=== PATIENT | male | born 1955 | race Caucasian/White ===

== ENCOUNTER 2017-04-16 06:34 | Inpatient (IN) | payer OTHER ==
[2017-04-16 06:42] VITALS: BMI 28.0
[2017-04-16] MEDS ORDERED: KETOROLAC TROMETHAMINE 30 MG/1 ML VIAL ONE (06:55)
[2017-04-16 07:01] LABS: BASOPHIL 0.4 % (0-2.0); EOSINOPHIL 0.5 % (0-4.5); MCH 28.8 pg (25.7-33.7); MCHC 33.4 g/dl (32.0-35.9); MEAN CELL VOLUME 86.4 fl (80-96); MEAN PLT VOLUME 8.9 fl (7.5-11.1); NEUTROPHILS 74.6 % (42.8-82.8); PLATELET COUNT 151 K/MM3 (134-434); RDW 13.3 % (11.9-15.9); WHITE BLOOD COUNT 8.7 K/mm3 (4.0-10.0)
[2017-04-16] MEDS ORDERED: KETOROLAC TROMETHAMINE 30 MG/1 ML VIAL IVPUSH ONE (07:02)
[2017-04-16] MEDS ORDERED: SODIUM CHLORIDE 0.9% 1000 ML INFUS.BAG IV ONE (07:03)
[2017-04-16 07:06] LABS: URINE APPEARANCE CLEAR; URINE BILIRUBIN NEGATIVE (NEGATIVE); URINE COLOR LTYELLOW; URINE GLUCOSE (UA) NEGATIVE (NEGATIVE); URINE KETONE NEGATIVE (NEGATIVE); URINE LEUK ESTERASE NEGATIVE (NEGATIVE); URINE NITRITE NEGATIVE (NEGATIVE); URINE UROBILINOGEN NEGATIVE E.U./dl (0.2-1.0)
[2017-04-16 07:09] LABS: URINE BLOOD 3+ (NEGATIVE); URINE PROTEIN 1+ (NEGATIVE)
[2017-04-16 07:10] LABS: URINE HYALINE CAST 1 /lpf; URINE MUCUS RARE; URINE RBC 114 /hpf (0-3); URINE WBC 6 /hpf (3-5)
[2017-04-16] MEDS ORDERED: morphine CARPU-JECT 4 MG/1 ML DISP.SYRIN IVPUSH ONE (07:23)
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
[2017-04-16] MEDS ORDERED: morphine CARPU-JECT 4 MG/1 ML DISP.SYRIN ONE (07:27)
[2017-04-16 07:33] LABS: ALBUMIN 3.7 g/dl (3.4-5.0); ANION GAP 9 (8-16); BILIRUBIN,TOTAL 0.7 mg/dL (0.2-1.0); CALCIUM 8.4 mg/dL (8.5-10.1); CO2 27 mmol/L (21-32); CREATININE 1.8 mg/dL (0.7-1.3); GLUCOSE,RANDOM 143 mg/dL (74-106); SGOT/AST 18 U/L (15-37); SGPT/ALT 34 U/L (12-78)
[2017-04-16 07:34] LABS: ALK PHOS 97 U/L (45-117)
[2017-04-16] MEDS ORDERED: TAMSULOSIN HCL 0.4 MG CAP.ER.24H (FP) PO ONE (09:34)
[2017-04-16] MEDS ORDERED: TAMSULOSIN HCL 0.4 MG CAP.ER.24H (FP) ONE (09:38)
[2017-04-16] MEDS ORDERED: SODIUM CHLORIDE 1,000 ML IV STA (09:42)
[2017-04-16 10:16] LABS: ALBUMIN 3.4 g/dl (3.4-5.0); ALK PHOS 95 U/L (45-117); ANION GAP 7 (8-16); BILIRUBIN,TOTAL 0.6 mg/dL (0.2-1.0); CALCIUM 8.4 mg/dL (8.5-10.1); CO2 27 mmol/L (21-32); CREATININE 1.7 mg/dL (0.7-1.3); GLUCOSE,RANDOM 122 mg/dL (74-106); SGOT/AST 16 U/L (15-37); SGPT/ALT 31 U/L (12-78); TOT PROT 7.5 g/dl (6.4-8.2)
[2017-04-16] MEDS ORDERED: morphine CARPU-JECT 2 MG/1 ML DISP.SYRIN IVPUSH PRN (18:08)
[2017-04-16] MEDS: DEXTROSE 5%-0.45% SALINE 1,000 ML IV SCH (18:55)
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
[2017-04-17] MEDS ORDERED: morphine CARPU-JECT 2 MG/1 ML DISP.SYRIN IVPB ONE (01:30)
[2017-04-17] MEDS ORDERED: morphine CARPU-JECT 4 MG/1 ML DISP.SYRIN IVPUSH PRN ×2 (02:26→02:29)
[2017-04-17] MEDS ORDERED: KETOROLAC TROMETHAMINE 30 MG/1 ML VIAL IVPB ONE (02:30)
[2017-04-17] MEDS: TAMSULOSIN HCL 0.4 MG CAP.ER.24H (FP) PO SCH (08:51)
[2017-04-17 09:30] LABS: BASOPHIL 0.5 % (0-2.0); EOSINOPHIL 0.9 % (0-4.5); MCH 29.6 pg (25.7-33.7); MCHC 34.1 g/dl (32.0-35.9); MEAN CELL VOLUME 86.9 fl (80-96); MEAN PLT VOLUME 9.1 fl (7.5-11.1); NEUTROPHILS 67.2 % (42.8-82.8); PLATELET COUNT 127 K/MM3 (134-434); RDW 13.4 % (11.9-15.9)
[2017-04-17 09:41] LABS: ALBUMIN 3.4 g/dl (3.4-5.0); ANION GAP 11 (8-16); CALCIUM 8.4 mg/dL (8.5-10.1); CO2 24 mmol/L (21-32); CREATININE 1.7 mg/dL (0.7-1.3); GLUCOSE,RANDOM 161 mg/dL (74-106); SGOT/AST 17 U/L (15-37); SGPT/ALT 28 U/L (12-78); TOT PROT 7.1 g/dl (6.4-8.2)
[2017-04-17 09:45] LABS: ALK PHOS 87 U/L (45-117); BILIRUBIN,TOTAL 0.7 mg/dL (0.2-1.0)
[2017-04-17] MEDS: amLODIPine BESYLATE 10 MG TABLET (FP) PO SCH (10:37)
[2017-04-17] MEDS: DEXTROSE 5%-0.45% SALINE 1,000 ML IV SCH (11:51)
[2017-04-18] MEDS: DEXTROSE 5%-0.45% SALINE 1,000 ML IV SCH ×2 (05:20→18:13)
[2017-04-18 08:07] LABS: BASOPHIL 0.6 % (0-2.0); EOSINOPHIL 3.6 % (0-4.5); MCHC 33.5 g/dl (32.0-35.9); MEAN CELL VOLUME 86.5 fl (80-96); MEAN PLT VOLUME 8.7 fl (7.5-11.1); NEUTROPHILS 53.3 % (42.8-82.8); PLATELET COUNT 130 K/MM3 (134-434); RDW 13.2 % (11.9-15.9); WHITE BLOOD COUNT 5.4 K/mm3 (4.0-10.0)
[2017-04-18 08:51] LABS: ALBUMIN 3.2 g/dl (3.4-5.0); ANION GAP 9 (8-16); BILIRUBIN,TOTAL 0.6 mg/dL (0.2-1.0); CALCIUM 8.4 mg/dL (8.5-10.1); CO2 28 mmol/L (21-32); CREATININE 1.5 mg/dL (0.7-1.3); GLUCOSE,RANDOM 102 mg/dL (74-106); SGOT/AST 21 U/L (15-37); SGPT/ALT 29 U/L (12-78); TOT PROT 7.2 g/dl (6.4-8.2)
[2017-04-18 08:52] LABS: ALK PHOS 86 U/L (45-117)
[2017-04-18] MEDS: TAMSULOSIN HCL 0.4 MG CAP.ER.24H (FP) PO SCH (09:08)
[2017-04-18] MEDS: amLODIPine BESYLATE 10 MG TABLET (FP) PO SCH (09:09)
[2017-04-18] MEDS: HEPARIN NA (PORCINE) 5,000 UNITS/ML 1ML VIAL SQ SCH ×2 (09:09→21:51)
--- NOTE | 2017-04-18 18:10 | CONS ---
DATE OF CONSULTATION: 04/17/2017 HISTORY: The patient is a 61-year-old male admitted via the emergency room on April 16, 2017. He is complaining of acute onset of left flank pain. He states that it began earlier that day and has increased in severity. The pain was colicky in nature, commenced in the left flank and radiating to the left lower quadrant and groin. The patient does have frequency and some nausea but denies any vomiting, fever, chills, dysuria, or hematuria. He recently underwent a cervical laminectomy and is presently wearing a soft neck collar. PAST MEDICAL HISTORY: The patient denies any other significant medical history. SOCIAL HISTORY: He denies any ethanolism or tobacco use. ALLERGIES: He denies any allergies. PHYSICAL EXAMINATION: Vital Signs: Temperature in the emergency room 97.8, pulse 77, blood pressure 157/98, pulse oximetry is 99. Abdomen: The patient basically has severe left flank pain. Also tenderness, which radiates to the left groin. A CBC revealed a white count of 8.7, hemoglobin 13.7, hematocrit 41, random glucose 151, BUN 19, creatinine 1.7. The patient's urine was positive for blood and negative for nitrates. The patient was commenced on IV fluids and given analgesics to relieve his pain. A spiral CT of the kidneys was done in the emergency room, and this revealed a left-sided hydroureteronephrosis secondary to a 5-mm left ureteral calculus. There were also several bilateral nonobstructing 2- to 3-mm stones in both the right and left kidney. There was a 1-cm left adrenal nodule. There was left-sided colonic diverticulosis without evidence of diverticulitis. There was a small umbilical hernia containing fat only. DIAGNOSIS: Left renal colic with left renal stone. PLAN: We will admit patient. Increase p.o. and IV fluids. Start the patient on Flomax 0.4 mg. Strain his urine. We will repeat sonogram in the a.m. If stone is still present, we will recommend a ureteroscopic laser lithotripsy. We will follow with you. ISMAEL CASILLAS M.D. [id number]
--- NOTE | 2017-04-18 20:52 | PN ---
Progress Note, Physician History of Present Illness: Pt feeling better - Current Medication List Current Medications: Active Medications Amlodipine Besylate (Norvasc -) 10 mg PO DAILY [facility] Last Admin: 04/18/17 09:09 Dose: 10 mg Heparin Sodium (Porcine) (Heparin -) 5,000 unit SQ BID [facility] Last Admin: 04/18/17 09:09 Dose: 5,000 unit Dextrose/Sodium Chloride (D5-1/2ns -) 1,000 mls @ 75 mls/hr IV ASDIR [facility] Last Admin: 04/18/17 18:13 Dose: 75 mls/hr Morphine Sulfate (Morphine Injection -) 4 mg IVPUSH Q4H PRN PRN Reason: PAIN Tamsulosin HCl (Flomax -) 0.4 mg PO DAILY@0830 [facility] Last Admin: 04/18/17 09:08 Dose: 0.4 mg - Objective Vital Signs: Vital Signs Temperature 98.3 F 04/18/17 14:13 Pulse Rate 110 H 04/18/17 14:13 Respiratory Rate 18 04/18/17 14:13 Blood Pressure 146/95 04/18/17 14:13 O2 Sat by Pulse Oximetry (%) 97 04/18/17 09:00 Constitutional: Yes: No Distress Neck: Yes: Other (Pt wearing neck brace) Cardiovascular: Yes: WNL, Regular Rate and Rhythm Respiratory: Yes: WNL, Regular, CTA Bilaterally Gastrointestinal: Yes: WNL, Normal Bowel Sounds, Soft Labs: CBC, BMP 04/18/17 06:00 04/18/17 06:00 Problem List - Problems (1) Kidney stone Assessment/Plan: CT scan abd showed 4-5 mm lt ureteral calculus w/ mild hydronephrosis Pain management Cont IVF Cont flomax Strain urine As per uro Check renal US in am Code(s): N20.0 - CALCULUS OF KIDNEY (2) HTN (hypertension) Assessment/Plan: BP stable Cont norvasc Code(s): I10 - ESSENTIAL (PRIMARY) HYPERTENSION
[2017-04-19] MEDS: DEXTROSE 5%-0.45% SALINE 1,000 ML IV SCH ×3 (10:14→17:15)
[2017-04-19] MEDS: HEPARIN NA (PORCINE) 5,000 UNITS/ML 1ML VIAL SQ SCH ×2 (10:14→21:43)
[2017-04-19] MEDS ORDERED: PT OWN MED DRAWER 7, Y5N ONE (10:15)
[2017-04-19] MEDS: amLODIPine BESYLATE 10 MG TABLET (FP) PO SCH (10:18)
[2017-04-19] MEDS: TAMSULOSIN HCL 0.4 MG CAP.ER.24H (FP) PO SCH (10:18)
--- NOTE | 2017-04-19 11:35 | EKG ---
Test Reason : Blood Pressure : / mmHG Vent. Rate : 098 BPM Atrial Rate : 098 BPM P-R Int : 166 ms QRS Dur : 090 ms QT Int : 338 ms P-R-T Axes : 042 -31 041 degrees QTc Int : 431 ms NORMAL SINUS RHYTHM LEFT AXIS DEVIATION MODERATE VOLTAGE CRITERIA FOR LVH, MAY BE NORMAL VARIANT ABNORMAL ECG NO PREVIOUS ECGS AVAILABLE Confirmed by SOTO HESS MD ([id number]) on 04/19/2017 11:35:29 AM Referred By: Aleks KARIMI Confirmed By:SOTO HESS MD
[2017-04-19] MEDS ORDERED: PROPOFOL 20 ML ONE (14:24)
[2017-04-19] MEDS ORDERED: MIDAZOLAM HCL 2 MG/2 ML SINGLE DOSE VIAL ONE (14:24)
--- NOTE | 2017-04-19 14:26 | PN ---
Progress Note (short form) - Note Progress Note: pt. with lt. sided hydronephrosis still with lt. flank pain and colick will schedual for LULL with JJ stent
[2017-04-19] MEDS ORDERED: DESFLURANE GAS 240 ML BOTTLE IH ONE (14:29)
[2017-04-19] MEDS ORDERED: ceFAZolin SODIUM 1 GM VIAL IVPB ONE (14:50)
[2017-04-19] MEDS ORDERED: ceFAZolin SODIUM 1 GM VIAL ONE (14:55)
[2017-04-19] MEDS ORDERED: KETOROLAC TROMETHAMINE 30 MG/1 ML VIAL ONE (15:38)
[2017-04-19] MEDS ORDERED: DEXAMETHASONE SOD PHOSPHATE 4 MG/1 ML VIAL ONE (15:50)
--- NOTE | 2017-04-19 16:09 | OP ---
Operative Note - Note: Operative Date: 04/19/17 Pre-Operative Diagnosis: lt. ureteral stone and hydro. Operation: LULL with JJ stent Findings: lt. ereteral stone Implants: 24cm 6f lt. JJ STENT. Post-Operative Diagnosis: Same as Pre-op Surgeon: Chintan Yadav Anesthesia: General Specimens Removed: URINE Estimated Blood Loss (mls): 0 Drains & Tubes with Location: 18F 10CC OLIVEIRA
[2017-04-19] MEDS ORDERED: ONDANSETRON 4 MG/2 ML VIAL IVPUSH PRN ×2 (16:10→17:04)
[2017-04-19] MEDS ORDERED: LACTATED RINGERS SOLUTION 1,000 ML IV SCH (16:15)
[2017-04-19] MEDS ORDERED: PROMETHAZINE HCL 25 MG/1 ML VIAL IVPUSH PRN (17:04)
--- NOTE | 2017-04-19 23:06 | PN ---
Progress Note, Physician History of Present Illness: Pt tolerated procedure Pt had urinary retention and abbasi placed 350cc residual urine - Current Medication List Current Medications: Active Medications Amlodipine Besylate (Norvasc -) 10 mg PO DAILY [facility] Last Admin: 04/19/17 10:18 Dose: 10 mg Fentanyl (Sublimaze Injection -) 50 mcg IVPUSH [id number] PRN PRN Reason: PAIN Stop: 04/22/17 16:11 Last Admin: 04/19/17 16:44 Dose: 50 mcg Fentanyl (Sublimaze Injection -) 50 mcg IVPUSH [id number] PRN PRN Reason: PAIN Stop: 04/22/17 17:05 Heparin Sodium (Porcine) (Heparin -) 5,000 unit SQ BID [facility] Last Admin: 04/19/17 21:43 Dose: 5,000 unit Dextrose/Sodium Chloride (D5-1/2ns -) 1,000 mls @ 75 mls/hr IV ASDIR [facility] Last Admin: 04/19/17 17:15 Dose: 0 mls Lactated Ringer's (Lactated Ringers Solution) 1,000 mls @ 125 mls/hr IV ASDIR [facility] Ketorolac Tromethamine (Toradol Injection -) 30 mg IVPUSH Q6H PRN Stop: 04/24/17 12:50 Lisinopril (Prinivil) 20 mg PO DAILY [facility] Morphine Sulfate (Morphine Injection -) 4 mg IVPUSH Q4H PRN PRN Reason: PAIN Last Admin: 04/19/17 11:07 Dose: 4 mg Ondansetron HCl (Zofran Injection) 4 mg IVPUSH Q6H PRN PRN Reason: NAUSEA AND/OR VOMITING Stop: 04/19/17 23:05 Oxycodone HCl (Roxicodone -) 10 mg PO Q4H PRN PRN Reason: SEVERE PAIN Stop: 04/20/17 17:03 Promethazine HCl (Phenergan Injection -) 12.5 mg IVPUSH Q6H PRN PRN Reason: NAUSEA Stop: 04/19/17 23:05 Tamsulosin HCl (Flomax -) 0.4 mg PO DAILY@0830 [facility] Last Admin: 04/19/17 10:18 Dose: 0.4 mg - Objective Vital Signs: Vital Signs Temperature 99.3 F 04/19/17 22:14 Pulse Rate 98 H 04/19/17 22:14 Respiratory Rate 20 04/19/17 22:14 Blood Pressure 140/84 04/19/17 22:14 O2 Sat by Pulse Oximetry (%) 94 L 04/19/17 18:10 Constitutional: Yes: No Distress Eyes: Yes: WNL HENT: Yes: WNL Neck: Yes: Other (Pt wearing neck brace) Cardiovascular: Yes: WNL, Regular Rate and Rhythm Respiratory: Yes: WNL, Regular, CTA Bilaterally Gastrointestinal: Yes: WNL, Normal Bowel Sounds Labs: CBC, BMP 04/18/17 06:00 04/18/17 06:00 Problem List - Problems (1) Kidney stone Assessment/Plan: CT scan abd showed 4-5 mm lt ureteral calculus w/ mild hydronephrosis Pain management Cont IVF Cont flomax S/P JJ stent placement DC abbasi as per uro Code(s): N20.0 - CALCULUS OF KIDNEY (2) HTN (hypertension) Assessment/Plan: BP stable Cont norvasc Code(s): I10 - ESSENTIAL (PRIMARY) HYPERTENSION
[2017-04-20] MEDS: DEXTROSE 5%-0.45% SALINE 1,000 ML IV SCH ×2 (05:44→20:18)
[2017-04-20] MEDS: oxyCODONE HCL 5 MG TABLET PO PRN ×2 (05:50→14:30)
[2017-04-20] MEDS: TAMSULOSIN HCL 0.4 MG CAP.ER.24H (FP) PO SCH (08:48)
[2017-04-20] MEDS ORDERED: PATIENT'S OWN MEDICATION (NON-FORMULARY) (Amlodipine Besylate/Benazepril [Lotrel 10-20 Mg PO SCH (10:00)
[2017-04-20] MEDS: LISINOPRIL 20 MG TABLET (FP) PO SCH (11:10)
[2017-04-20] MEDS: amLODIPine BESYLATE 10 MG TABLET (FP) PO SCH (11:10)
[2017-04-20] MEDS: HEPARIN NA (PORCINE) 5,000 UNITS/ML 1ML VIAL SQ SCH ×2 (11:10→22:04)
--- NOTE | 2017-04-20 15:44 | PN ---
Progress Note (short form) - Note Progress Note: Anesthesia postop note 61 y/o M, s/p GA for cystoscopy POD#1, vss, aaox3, ambulating, pain well controlled, no complaints No anesthesia complications.
[2017-04-20] MEDS: ACETAMINOPHEN 325 MG TABLET (FP) PO PRN (19:28)
[2017-04-20] MEDS: LEVOFLOXACIN 500 MG IVPB 100 ML IVPB SCH (20:18)
[2017-04-20] MEDS ORDERED: IBUPROFEN 400 MG TABLET (FP) PO ONE (21:45)
--- NOTE | 2017-04-20 22:29 | PN ---
Progress Note, Physician History of Present Illness: No new complaints - Current Medication List Current Medications: Active Medications Acetaminophen (Tylenol -) 650 mg PO Q6H PRN PRN Reason: FEVER OR PAIN Last Admin: 04/20/17 19:28 Dose: 650 mg Amlodipine Besylate (Norvasc -) 10 mg PO DAILY [facility] Last Admin: 04/20/17 11:10 Dose: 10 mg Fentanyl (Sublimaze Injection -) 50 mcg IVPUSH [id number] PRN PRN Reason: PAIN Stop: 04/22/17 16:11 Last Admin: 04/19/17 16:44 Dose: 50 mcg Fentanyl (Sublimaze Injection -) 50 mcg IVPUSH [id number] PRN PRN Reason: PAIN Stop: 04/22/17 17:05 Heparin Sodium (Porcine) (Heparin -) 5,000 unit SQ BID [facility] Last Admin: 04/20/17 22:04 Dose: 5,000 unit Dextrose/Sodium Chloride (D5-1/2ns -) 1,000 mls @ 75 mls/hr IV ASDIR [facility] Last Admin: 04/20/17 20:18 Dose: 75 mls/hr Lactated Ringer's (Lactated Ringers Solution) 1,000 mls @ 125 mls/hr IV ASDIR [facility] Levofloxacin (Levaquin 500 Mg Premixed Ivpb -) 100 mls @ 100 mls/hr IVPB DAILY [facility] Stop: 04/22/17 19:29 Last Admin: 04/20/17 20:18 Dose: 100 mls/hr Ketorolac Tromethamine (Toradol Injection -) 30 mg IVPUSH Q6H PRN Stop: 04/24/17 12:50 Lisinopril (Prinivil) 20 mg PO DAILY [facility] Last Admin: 04/20/17 11:10 Dose: 20 mg Tamsulosin HCl (Flomax -) 0.4 mg PO DAILY@0830 [facility] Last Admin: 04/20/17 08:48 Dose: 0.4 mg - Objective Vital Signs: Vital Signs Temperature 101.3 F H 04/20/17 21:43 Pulse Rate 100 H 04/20/17 21:43 Respiratory Rate 20 04/20/17 21:43 Blood Pressure 134/76 04/20/17 20:09 O2 Sat by Pulse Oximetry (%) 98 04/20/17 20:48 Cardiovascular: Yes: WNL, Regular Rate and Rhythm Respiratory: Yes: WNL, Regular, CTA Bilaterally Gastrointestinal: Yes: WNL, Normal Bowel Sounds Labs: CBC, BMP 04/18/17 06:00 04/18/17 06:00 Problem List - Problems (1) Kidney stone Code(s): N20.0 - CALCULUS OF KIDNEY (2) HTN (hypertension) Code(s): I10 - ESSENTIAL (PRIMARY) HYPERTENSION
[2017-04-21 00:13] LABS: URINE APPEARANCE CLEAR; URINE BILIRUBIN NEGATIVE (NEGATIVE); URINE COLOR STRAW; URINE GLUCOSE (UA) NEGATIVE (NEGATIVE); URINE KETONE NEGATIVE (NEGATIVE); URINE LEUK ESTERASE NEGATIVE (NEGATIVE); URINE NITRITE NEGATIVE (NEGATIVE); URINE PROTEIN NEGATIVE (NEGATIVE); URINE UROBILINOGEN NEGATIVE E.U./dl (0.2-1.0)
[2017-04-21 00:26] LABS: URINE BLOOD 3+ (NEGATIVE)
[2017-04-21 00:29] LABS: URINE RBC 30 /hpf (0-3); URINE WBC 5 /hpf (3-5)
[2017-04-21] MEDS: ACETAMINOPHEN 325 MG TABLET (FP) PO PRN ×2 (01:00→17:33)
[2017-04-21 07:46] LABS: BASOPHIL 0.2 % (0-2.0); EOSINOPHIL 0.7 % (0-4.5); MCH 29.7 pg (25.7-33.7); MCHC 33.9 g/dl (32.0-35.9); MEAN CELL VOLUME 87.6 fl (80-96); MEAN PLT VOLUME 8.7 fl (7.5-11.1); NEUTROPHILS 79.6 % (42.8-82.8); PLATELET COUNT 139 K/MM3 (134-434); RDW 13.7 % (11.9-15.9); WHITE BLOOD COUNT 11.3 K/mm3 (4.0-10.0)
[2017-04-21 08:14] LABS: ANION GAP 9 (8-16); CALCIUM 8.4 mg/dL (8.5-10.1); CO2 26 mmol/L (21-32); CREATININE 2.2 mg/dL (0.7-1.3); GLUCOSE,RANDOM 104 mg/dL (74-106); SGOT/AST 19 U/L (15-37); SGPT/ALT 32 U/L (12-78)
[2017-04-21] MEDS: TAMSULOSIN HCL 0.4 MG CAP.ER.24H (FP) PO SCH (08:14)
[2017-04-21 08:16] LABS: ALK PHOS 87 U/L (45-117); BILIRUBIN,TOTAL 0.6 mg/dL (0.2-1.0); TOT PROT 7.1 g/dl (6.4-8.2)
[2017-04-21] MEDS: LISINOPRIL 20 MG TABLET (FP) PO SCH (09:57)
[2017-04-21] MEDS: LEVOFLOXACIN 500 MG IVPB 100 ML IVPB SCH (09:57)
[2017-04-21] MEDS: HEPARIN NA (PORCINE) 5,000 UNITS/ML 1ML VIAL SQ SCH ×2 (09:57→21:06)
[2017-04-21] MEDS: amLODIPine BESYLATE 10 MG TABLET (FP) PO SCH (09:57)
[2017-04-21] MEDS: KETOROLAC TROMETHAMINE 30 MG/1 ML VIAL IVPUSH PRN ×2 (11:13→17:32)
--- NOTE | 2017-04-21 15:10 | PN ---
Progress Note, Physician Chief Complaint: ID Day 2 placement of left JJ stent Febrile in pain - Current Medication List Current Medications: Active Medications Acetaminophen (Tylenol -) 650 mg PO Q6H PRN PRN Reason: FEVER OR PAIN Last Admin: 04/21/17 01:00 Dose: 650 mg Amlodipine Besylate (Norvasc -) 10 mg PO DAILY [facility] Last Admin: 04/21/17 09:57 Dose: 10 mg Fentanyl (Sublimaze Injection -) 50 mcg IVPUSH [id number] PRN PRN Reason: PAIN Stop: 04/22/17 16:11 Last Admin: 04/19/17 16:44 Dose: 50 mcg Fentanyl (Sublimaze Injection -) 50 mcg IVPUSH [id number] PRN PRN Reason: PAIN Stop: 04/22/17 17:05 Heparin Sodium (Porcine) (Heparin -) 5,000 unit SQ BID [facility] Last Admin: 04/21/17 09:57 Dose: 5,000 unit Dextrose/Sodium Chloride (D5-1/2ns -) 1,000 mls @ 75 mls/hr IV ASDIR [facility] Last Admin: 04/20/17 20:18 Dose: 75 mls/hr Lactated Ringer's (Lactated Ringers Solution) 1,000 mls @ 125 mls/hr IV ASDIR [facility] Levofloxacin (Levaquin 500 Mg Premixed Ivpb -) 100 mls @ 100 mls/hr IVPB DAILY [facility] Stop: 04/22/17 19:29 Last Admin: 04/21/17 09:57 Dose: 100 mls/hr Ketorolac Tromethamine (Toradol Injection -) 30 mg IVPUSH Q6H PRN Stop: 04/24/17 12:50 Last Admin: 04/21/17 11:13 Dose: 30 mg Lisinopril (Prinivil) 20 mg PO DAILY [facility] Last Admin: 04/21/17 09:57 Dose: 20 mg Tamsulosin HCl (Flomax -) 0.4 mg PO DAILY@0830 [facility] Last Admin: 04/21/17 08:14 Dose: 0.4 mg - Objective Vital Signs: Vital Signs Temperature 98.8 F 04/21/17 13:46 Pulse Rate 110 H 04/21/17 13:46 Respiratory Rate 18 04/21/17 09:00 Blood Pressure 135/68 04/21/17 13:46 O2 Sat by Pulse Oximetry (%) 98 04/21/17 09:00 Constitutional: Yes: Moderate Distress HENT: Yes: WNL, Atraumatic Neck: Yes: WNL, Supple Cardiovascular: Yes: Regular Rate and Rhythm, S1, S2. No: Murmur Respiratory: Yes: WNL, Regular, CTA Bilaterally Gastrointestinal: Yes: Soft, Tenderness, Other (LLQ pain) Genitourinary: Yes: CVA Tenderness - Left Labs: CBC, BMP 04/21/17 06:55 04/21/17 06:55 Problem List - Problems (1) Kidney stone Code(s): N20.0 - CALCULUS OF KIDNEY (2) Klebsiella infection Code(s): B96.1 - KLEBSIELLA PNEUMONIAE THE CAUSE OF DISEASES CLASSD [facility] Assessment/Plan Microbiology 04/19/17 21:14 Urine - Urine - Catheterized Urine Culture - Final NO GROWTH OBTAINED 04/17/17 15:00 Urine - Urine Clean Catch Urine Culture - Final Klebsiella Pneumoniae Laboratory Tests 04/16/17 04/21/17 04/21/17 06:53 06:55 06:55 WBC 11.3 H D Hgb 12.3 Hct 36.3 Plt Count 139 BUN 28 H D Creatinine 2.2 H D Creat Clearance w eGFR 30.58 Urine RBC 114 Urine WBC 6 Assessment Placement of JJ stent 04/09 Klebsiella urinary infection Kidney stones Worsening renal function Plan Continue Levofloxacin Blood cultures x 2 albeit post treatment Analgesics
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
[2017-04-21] MEDS: DEXTROSE 5%-0.45% SALINE 1,000 ML IV SCH (20:56)
--- NOTE | 2017-04-21 23:36 | PN ---
Progress Note, Physician History of Present Illness: No new complaints - Current Medication List Current Medications: Active Medications Acetaminophen (Tylenol -) 650 mg PO Q6H PRN PRN Reason: FEVER OR PAIN Last Admin: 04/21/17 17:33 Dose: 650 mg Amlodipine Besylate (Norvasc -) 10 mg PO DAILY [facility] Last Admin: 04/21/17 09:57 Dose: 10 mg Fentanyl (Sublimaze Injection -) 50 mcg IVPUSH [id number] PRN PRN Reason: PAIN Stop: 04/22/17 16:11 Last Admin: 04/19/17 16:44 Dose: 50 mcg Fentanyl (Sublimaze Injection -) 50 mcg IVPUSH [id number] PRN PRN Reason: PAIN Stop: 04/22/17 17:05 Heparin Sodium (Porcine) (Heparin -) 5,000 unit SQ BID [facility] Last Admin: 04/21/17 21:06 Dose: 5,000 unit Dextrose/Sodium Chloride (D5-1/2ns -) 1,000 mls @ 75 mls/hr IV ASDIR [facility] Last Admin: 04/21/17 20:56 Dose: Not Given Lactated Ringer's (Lactated Ringers Solution) 1,000 mls @ 125 mls/hr IV ASDIR [facility] Levofloxacin (Levaquin 500 Mg Premixed Ivpb -) 100 mls @ 100 mls/hr IVPB DAILY [facility] Stop: 04/22/17 19:29 Last Admin: 04/21/17 09:57 Dose: 100 mls/hr Ketorolac Tromethamine (Toradol Injection -) 30 mg IVPUSH Q6H PRN Stop: 04/24/17 12:50 Last Admin: 04/21/17 17:32 Dose: 30 mg Lisinopril (Prinivil) 20 mg PO DAILY [facility] Last Admin: 04/21/17 09:57 Dose: 20 mg Tamsulosin HCl (Flomax -) 0.4 mg PO DAILY@0830 [facility] Last Admin: 04/21/17 08:14 Dose: 0.4 mg - Objective Vital Signs: Vital Signs Temperature 102.6 F H 04/21/17 19:21 Pulse Rate 119 H 04/21/17 19:21 Respiratory Rate 20 04/21/17 19:21 Blood Pressure 137/71 04/21/17 19:21 O2 Sat by Pulse Oximetry (%) 98 04/21/17 09:00 Cardiovascular: Yes: WNL, Regular Rate and Rhythm Respiratory: Yes: WNL, Regular, CTA Bilaterally Gastrointestinal: Yes: WNL, Normal Bowel Sounds Labs: CBC, BMP 04/21/17 06:55 04/21/17 06:55 Problem List - Problems (1) Kidney stone Code(s): N20.0 - CALCULUS OF KIDNEY (2) HTN (hypertension) Code(s): I10 - ESSENTIAL (PRIMARY) HYPERTENSION
[2017-04-21] MEDS ORDERED: DEXTROSE 5%-0.45% SALINE 1,000 ML IV SCH (23:45)
[2017-04-21] MEDS ORDERED: HEPARIN NA (PORCINE) 5,000 UNITS/ML 1ML VIAL SQ SCH (23:45)
[2017-04-22] MEDS: KETOROLAC TROMETHAMINE 30 MG/1 ML VIAL IVPUSH PRN (00:40)
[2017-04-22 08:12] LABS: BASOPHIL 0.3 % (0-2.0); EOSINOPHIL 1.4 % (0-4.5); MCH 29.9 pg (25.7-33.7); MCHC 33.9 g/dl (32.0-35.9); MEAN CELL VOLUME 88.1 fl (80-96); MEAN PLT VOLUME 8.8 fl (7.5-11.1); NEUTROPHILS 77.7 % (42.8-82.8); PLATELET COUNT 131 K/MM3 (134-434); RDW 13.7 % (11.9-15.9); WHITE BLOOD COUNT 9.1 K/mm3 (4.0-10.0)
[2017-04-22 08:43] LABS: ALBUMIN 2.8 g/dl (3.4-5.0); ALK PHOS 90 U/L (45-117); ANION GAP 8 (8-16); BILIRUBIN,TOTAL 0.9 mg/dL (0.2-1.0); CALCIUM 8.6 mg/dL (8.5-10.1); CO2 28 mmol/L (21-32); CREATININE 2.1 mg/dL (0.7-1.3); GLUCOSE,RANDOM 103 mg/dL (74-106); SGOT/AST 17 U/L (15-37); TOT PROT 6.7 g/dl (6.4-8.2)
[2017-04-22 08:46] LABS: SGPT/ALT 31 U/L (12-78)
[2017-04-22] MEDS: LISINOPRIL 20 MG TABLET (FP) PO SCH (09:33)
[2017-04-22] MEDS: TAMSULOSIN HCL 0.4 MG CAP.ER.24H (FP) PO SCH (09:37)
[2017-04-22] MEDS: amLODIPine BESYLATE 10 MG TABLET (FP) PO SCH (09:37)
[2017-04-22] MEDS: LEVOFLOXACIN 500 MG IVPB 100 ML IVPB SCH (10:00)
[2017-04-22] MEDS: HEPARIN NA (PORCINE) 5,000 UNITS/ML 1ML VIAL SQ SCH ×2 (10:00→21:34)
--- NOTE | 2017-04-22 11:15 | PN ---
Progress Note (short form) - Note Progress Note: continues to have left sided pain ct scan with malpositioned stent, ?ureteral rupture patient for OR today he is awake and alert Vital Signs Period Temp Pulse Resp BP Sys/Daniel Pulse Ox Last 24 Hr 98.5 F-102.6 F 109-119 20-20 135-137/68-73 cor-rrr lungs clear abd left sided tenderness to palpation ext no edema CBC, BMP 04/22/17 06:50 04/22/17 06:50 Microbiology 04/19/17 21:14 Urine - Urine - Catheterized Urine Culture - Final NO GROWTH OBTAINED 04/17/17 15:00 Urine - Urine Clean Catch Urine Culture - Final Klebsiella Pneumoniae a/p For OR today s/p stent placement on 04/19 for left ureteral stone and hydronephrosis kelbsiella UTI sensitive to levaqun continue levaquin f/u cultures
[2017-04-22] MEDS ORDERED: MIDAZOLAM HCL 2 MG/2 ML SINGLE DOSE VIAL ONE (13:30)
[2017-04-22] MEDS ORDERED: PROPOFOL 20 ML ONE ×2 (13:30→15:39)
[2017-04-22] MEDS ORDERED: DEXAMETHASONE SOD PHOSPHATE 4 MG/1 ML VIAL ONE (14:34)
[2017-04-22] MEDS ORDERED: ceFAZolin SODIUM 1 GM VIAL ONE (14:47)
[2017-04-22] MEDS ORDERED: ceFAZolin SODIUM 1 GM VIAL IVPB ONE (14:48)
[2017-04-22] MEDS ORDERED: ISOSULFAN BLUE 10 MG/ML VIAL SQ ONE (15:02)
[2017-04-22] MEDS ORDERED: DESFLURANE GAS 240 ML BOTTLE IH ONE (15:08)
[2017-04-22] MEDS ORDERED: ACETAMINOPHEN INJECTION 100 ML IVPB ONE (15:09)
--- NOTE | 2017-04-22 16:11 | PN ---
Progress Note (short form) - Note Progress Note: pt. with lt. JJ stent cephalic migration as per ct. scan .There is evidence of proximal extravasation. Patient will go to OR for readjustment of Stent.. Pat Bun/Creat is 23/2.1 wbc 9000 tmax 102 urin c/s positive to klebsiella sensitive to levaquin.
[2017-04-22] MEDS ORDERED: LACTATED RINGERS SOLUTION 1,000 ML IV SCH ×2 (16:15→16:34)
--- NOTE | 2017-04-22 16:18 | OP ---
Operative Note - Note: Operative Date: 04/22/17 Pre-Operative Diagnosis: Cephlic Migration of left jj stent Operation: cystoscopy, Ureterscopic Stent readjustment. Distal end positioned in baldder Findings: Distal end of the stent found to be to left lower ureter. Marked periureteral orifice odema noted . Grade 2 and 3 tabeculation of the bladder . BPH with obstruction. Implants: #24/6FR JJ stent on the left side. #18F/10 cc baloon Humphreys in bladder. Post-Operative Diagnosis: Same as Pre-op Surgeon: Chintan Yadav Anesthesia: General Specimens Removed: none Estimated Blood Loss (mls): 0 Drains & Tubes with Location: Left JJ Stent. 18 F Humphreys Drains, Volume Out (mls): 0 Blood Volume Replaced (mls): 0 Fluid Volume Replaced (mls): 0 Operative Report Dictated: Yes
[2017-04-22] MEDS ORDERED: DEXTROSE 5%-0.45% SALINE 1,000 ML IV SCH (16:34)
[2017-04-22] MEDS ORDERED: KETOROLAC TROMETHAMINE 30 MG/1 ML VIAL IVPUSH PRN (16:34)
[2017-04-22] MEDS ORDERED: HYDROmorphone HCL CARPU-JECT 2 MG/1 ML DISP.SYRIN IM PRN (16:37)
[2017-04-22] MEDS ORDERED: LEVOFLOXACIN 500 MG IVPB 100 ML IVPB ONE (17:00)
--- NOTE | 2017-04-22 17:24 | CONSULT ---
Consult Consult Specialty:: Nephrology Reason for Consultation:: REE vs CKD - History of Present Illness Chief Complaint: left flank pain History of Present Illness: Pt is a 61 year old make with pmhx of HTN and chronic neck pain who presented with left sided flank pain. I was called to evaluate him for elevated creatinine. Pt had a displaced stent in his right ureter that had migrated up into the renal pelvis. It was repaired today. He denies history of kidney disease. His creatinine was elevated since admission and is now worsening. He was taking mobic on a daily basis. He currently has a abbasi and is in the recovery room. I discussed the case with urology. Pt denies fevers or chills. - History Source History Provided By: Patient, Medical Record - Past Medical History Cardio/Vascular: Yes: HTN Renal/: Yes: Other (uretral stent) Musculoskeletal: Yes: Other (Chronic neck pain) - Alcohol/Substance Use Hx Alcohol Use: Yes - Smoking History Smoking history: Never smoked Have you smoked in the past 12 months: No Home Medications - Allergies Allergies/Adverse Reactions: Allergies Allergy/AdvReac Type Severity Reaction Status Date / Time No Known Allergies Allergy Verified 04/16/17 06:42 - Home Medications Home Medications: Ambulatory Orders Amlodipine Besylate [Norvasc -] 10 mg PO DAILY 04/16/17 Amlodipine Besylate/Benazepril [Lotrel 10-20 mg Capsule] 1 cap PO DAILY Family Disease History - Family Disease History Family History: Denies Review of Systems - Review of Systems Constitutional: reports: No Symptoms. denies: Chills, Fever Eyes: reports: No Symptoms HENT: reports: No Symptoms Neck: reports: No Symptoms Cardiovascular: reports: No Symptoms Respiratory: reports: No Symptoms Gastrointestinal: reports: No Symptoms Genitourinary: reports: Other (discomfort from abbasi) Musculoskeletal: reports: No Symptoms Integumentary: reports: No Symptoms Physical Exam Vital Signs: Vital Signs Temperature 99.2 F 04/22/17 15:56 Pulse Rate 62 04/22/17 16:55 Respiratory Rate 16 04/22/17 16:55 Blood Pressure 111/62 04/22/17 16:55 O2 Sat by Pulse Oximetry (%) 95 04/22/17 16:55 Constitutional: Yes: Calm Eyes: Yes: Conjunctiva Clear HENT: Yes: Atraumatic Neck: Yes: Supple Cardiovascular: Yes: S1, S2 Respiratory: Yes: CTA Bilaterally Gastrointestinal: Yes: Normal Bowel Sounds, Soft Renal/: Yes: Abbasi Present Extremities: Yes: WNL Edema: No Neurological: Yes: Oriented Psychiatric: Yes: Oriented Labs: CBC, BMP 04/22/17 06:50 04/22/17 06:50 Laboratory Tests 04/16/17 04/16/17 04/16/17 06:53 06:53 09:38 WBC Hgb Plt Count Creatinine 1.8 H 1.7 H Urine Protein 1+ H Urine Blood 3+ H 04/17/17 04/18/17 04/18/17 07:35 06:00 06:00 WBC 5.4 Hgb 13.4 Plt Count Creatinine 1.7 H 1.5 H Urine Protein Urine Blood 04/20/17 04/21/17 04/21/17 22:50 06:55 06:55 WBC 11.3 H D Hgb 12.3 Plt Count 139 Creatinine 2.2 H D Urine Protein Negative Urine Blood 3+ H 04/22/17 04/22/17 06:50 06:50 WBC 9.1 Hgb 12.3 Plt Count 131 L Creatinine 2.1 H Urine Protein Urine Blood Imaging - Results Cat Scan: Report Reviewed Ultrasound: Report Reviewed Problem List - Problems (1) Acute kidney insufficiency Code(s): N28.9 - DISORDER OF KIDNEY AND URETER, UNSPECIFIED (2) HTN (hypertension) Code(s): I10 - ESSENTIAL (PRIMARY) HYPERTENSION (3) Kidney stone Code(s): N20.0 - CALCULUS OF KIDNEY Assessment/Plan Current Medications Generic Name Dose Route Start Last Admin Trade Name Freq PRN Reason Stop Dose Admin Acetaminophen 650 mg 04/22/17 16:34 Tylenol - PO Q6H PRN FEVER OR PAIN Amlodipine Besylate 10 mg 04/23/17 10:00 Norvasc - PO DAILY [facility] Heparin Sodium (Porcine) 5,000 unit 04/22/17 22:00 Heparin - SQ BID [facility] Hydromorphone HCl 2 mg 04/22/17 16:37 Dilaudid Injection - IM Q4H PRN PAIN Dextrose/Sodium Chloride 1,000 mls @ 75 mls/hr 04/22/17 16:34 04/22/17 16:54 D5-1/2ns - IV 200 mls ASDIR [facility] Administration Lactated Ringer's 1,000 mls @ 75 mls/hr 04/22/17 16:34 Lactated Ringers Solution IV ASDIR [facility] Levofloxacin 100 mls @ 100 mls/hr 04/22/17 17:00 Levaquin 500 Mg Premixed Ivpb - IVPB 04/22/17 17:59 ONCE ONE Levofloxacin 100 mls @ 100 mls/hr 04/23/17 10:00 Levaquin 500 Mg Premixed Ivpb - IVPB DAILY [facility] Ketorolac Tromethamine 30 mg 04/22/17 16:34 Toradol Injection - IVPUSH 04/24/17 12:50 Q6H PRN Lisinopril 20 mg 04/23/17 10:00 Prinivil PO DAILY [facility] Tamsulosin HCl 0.4 mg 04/23/17 08:30 Flomax - PO DAILY@0830 [facility] Impression 1. REE vs CKD 2. nephrolithiasis 3. chronic neck pain 4. HTN with blood pressure that has been low Plan - hold lisinopril for now as pts bp is low and he is n renal failure - repeat labs in am - avoid nsaids - will need renal workup - discussed case with urology - will hydrate with NS - cont norvasc - monitor blood pressure - will follow Dr Camacho
[2017-04-22] MEDS ORDERED: SODIUM CHLORIDE 1,000 ML IV SCH (17:30)
--- NOTE | 2017-04-22 19:58 | PN ---
Progress Note, Physician History of Present Illness: No new complaints - Current Medication List Current Medications: Active Medications Acetaminophen (Tylenol -) 650 mg PO Q6H PRN PRN Reason: FEVER OR PAIN Amlodipine Besylate (Norvasc -) 10 mg PO DAILY [facility] Heparin Sodium (Porcine) (Heparin -) 5,000 unit SQ BID [facility] Hydromorphone HCl (Dilaudid Injection -) 2 mg IM Q4H PRN PRN Reason: PAIN Levofloxacin (Levaquin 500 Mg Premixed Ivpb -) 100 mls @ 100 mls/hr IVPB DAILY [facility] Sodium Chloride (Normal Saline -) 1,000 mls @ 83 mls/hr IV ASDIR [facility] Last Admin: 04/22/17 19:40 Dose: 83 mls/hr Tamsulosin HCl (Flomax -) 0.4 mg PO DAILY@0830 [facility] - Objective Vital Signs: Vital Signs Temperature 99.9 F H 04/22/17 19:24 Pulse Rate 102 H 04/22/17 19:24 Respiratory Rate 20 04/22/17 19:24 Blood Pressure 129/71 04/22/17 19:24 O2 Sat by Pulse Oximetry (%) 95 04/22/17 16:55 Cardiovascular: Yes: WNL, Regular Rate and Rhythm Respiratory: Yes: WNL, Regular, CTA Bilaterally Gastrointestinal: Yes: WNL, Normal Bowel Sounds Labs: CBC, BMP 04/22/17 06:50 04/22/17 06:50 Problem List - Problems (1) Kidney stone Code(s): N20.0 - CALCULUS OF KIDNEY (2) HTN (hypertension) Code(s): I10 - ESSENTIAL (PRIMARY) HYPERTENSION
[2017-04-23] MEDS: TAMSULOSIN HCL 0.4 MG CAP.ER.24H (FP) PO SCH (08:09)
[2017-04-23 09:00] LABS: MCH 29.6 pg (25.7-33.7); MCHC 33.7 g/dl (32.0-35.9); MEAN CELL VOLUME 87.9 fl (80-96); MEAN PLT VOLUME 8.6 fl (7.5-11.1); PLATELET COUNT 165 K/MM3 (134-434); RDW 13.5 % (11.9-15.9); WHITE BLOOD COUNT 10.6 K/mm3 (4.0-10.0)
[2017-04-23 09:48] LABS: ALBUMIN 2.7 g/dl (3.4-5.0); ALK PHOS 104 U/L (45-117); ANION GAP 9 (8-16); BILIRUBIN,TOTAL 0.4 mg/dL (0.2-1.0); CALCIUM 8.6 mg/dL (8.5-10.1); CO2 26 mmol/L (21-32); CREATININE 1.3 mg/dL (0.7-1.3); GLUCOSE,RANDOM 150 mg/dL (74-106); SGOT/AST 24 U/L (15-37); SGPT/ALT 43 U/L (12-78); TOT PROT 6.8 g/dl (6.4-8.2)
[2017-04-23] MEDS ORDERED: LEVOFLOXACIN 500 MG IVPB 100 ML IVPB SCH ×2 (10:00)
[2017-04-23] MEDS ORDERED: LISINOPRIL 20 MG TABLET (FP) PO SCH (10:00)
[2017-04-23] MEDS: HEPARIN NA (PORCINE) 5,000 UNITS/ML 1ML VIAL SQ SCH ×2 (10:12→21:18)
[2017-04-23] MEDS: amLODIPine BESYLATE 10 MG TABLET (FP) PO SCH (10:12)
--- NOTE | 2017-04-23 10:14 | PN ---
Progress Note (short form) - Note Progress Note: ID Procedure replacement of stent for migration of original stent Levofloxacin continues Afebrile Selected Entries 04/23/17 06:00 Temperature 98.7 F Pulse Rate 91 H Respiratory 20 Rate Blood Pressure 103/56 Microbiology 04/19/17 21:14 Urine - Urine - Catheterized Urine Culture - Final NO GROWTH OBTAINED 04/17/17 15:00 Urine - Urine Clean Catch Urine Culture - Final Klebsiella Pneumoniae 04/21/17 17:30 Blood - Peripheral Venous Blood Culture - Preliminary NO GROWTH OBTAINED AFTER 24 HOURS, INCUBATION TO CONTINUE FOR 4 DAYS. Laboratory Tests 04/23/17 04/23/17 07:45 07:45 WBC 10.6 H Hgb 12.6 Hct 37.5 Plt Count 165 D Creat Clearance w eGFR 56.12 Assessment Looks 100% better !! Klebsiella UTI/kidney stone Plan Continue Levofloxacin 25omg orally daily Jon PETERSON Problem List - Problems (1) Kidney stone Code(s): N20.0 - CALCULUS OF KIDNEY (2) Klebsiella infection Code(s): B96.1 - KLEBSIELLA PNEUMONIAE THE CAUSE OF DISEASES CLASSD [facility]
--- NOTE | 2017-04-23 11:30 | PN ---
Progress Note (short form) - Note Progress Note: POD 1, s/p readjustment of migrated lt jj stent. Distal stent in bladder, pt feels better today, a febrile, abdomen soft, no cva tenderness, folet patent and clear, bun/cr back down to normal. Urine c/s klebseilla. Plan: d/c abbasi, repeat renal and pelvic sono in am to r/o hydro and/or urinoma.
--- NOTE | 2017-04-23 13:48 | PN ---
Progress Note (short form) - Note Progress Note: Anesthesia post op note,POD#1 S/P cystoscopy and stent placement under GETA. Pat seen and examined. VSS. No apparent post anesthesia complications. Signed off.
--- NOTE | 2017-04-23 17:00 | PN ---
Progress Note, Physician History of Present Illness: Pt seen and examined at bedside. He is awake and appears comfortable. - Current Medication List Current Medications: Active Medications Acetaminophen (Tylenol -) 650 mg PO Q6H PRN PRN Reason: FEVER OR PAIN Amlodipine Besylate (Norvasc -) 10 mg PO DAILY [facility] Last Admin: 04/23/17 10:12 Dose: 10 mg Heparin Sodium (Porcine) (Heparin -) 5,000 unit SQ BID [facility] Last Admin: 04/23/17 10:12 Dose: 5,000 unit Hydromorphone HCl (Dilaudid Injection -) 2 mg IM Q4H PRN PRN Reason: PAIN Sodium Chloride (Normal Saline -) 1,000 mls @ 83 mls/hr IV ASDIR [facility] Last Admin: 04/22/17 19:40 Dose: 83 mls/hr Levofloxacin (Levaquin -) 250 mg PO DAILY@0600 [facility] Tamsulosin HCl (Flomax -) 0.4 mg PO DAILY@0830 [facility] Last Admin: 04/23/17 08:09 Dose: 0.4 mg - Objective Vital Signs: Vital Signs Temperature 98.1 F 04/23/17 15:54 Pulse Rate 89 04/23/17 15:54 Respiratory Rate 20 04/23/17 15:54 Blood Pressure 126/53 04/23/17 15:54 O2 Sat by Pulse Oximetry (%) 95 04/23/17 09:00 Constitutional: Yes: Calm Eyes: Yes: WNL Cardiovascular: Yes: S1, S2 Respiratory: Yes: CTA Bilaterally Gastrointestinal: Yes: Soft Genitourinary: Yes: WNL Musculoskeletal: Yes: WNL Edema: No Neurological: Yes: Oriented Psychiatric: Yes: Oriented Labs: CBC, BMP 04/23/17 07:45 04/23/17 07:45 Problem List - Problems (1) Acute kidney insufficiency Code(s): N28.9 - DISORDER OF KIDNEY AND URETER, UNSPECIFIED (2) HTN (hypertension) Code(s): I10 - ESSENTIAL (PRIMARY) HYPERTENSION (3) Kidney stone Code(s): N20.0 - CALCULUS OF KIDNEY Assessment/Plan Current Medications Generic Name Dose Route Start Last Admin Trade Name Freq PRN Reason Stop Dose Admin Acetaminophen 650 mg 04/22/17 16:34 Tylenol - PO Q6H PRN FEVER OR PAIN Amlodipine Besylate 10 mg 04/23/17 10:00 04/23/17 10:12 Norvasc - PO 10 mg DAILY [facility] Administration Heparin Sodium (Porcine) 5,000 unit 04/22/17 22:00 04/23/17 10:12 Heparin - SQ 5,000 unit BID [facility] Administration Hydromorphone HCl 2 mg 04/22/17 16:37 Dilaudid Injection - IM Q4H PRN PAIN Sodium Chloride 1,000 mls @ 83 mls/hr 04/22/17 17:30 04/22/17 19:40 Normal Saline - IV 83 mls/hr ASDIR [facility] Administration Levofloxacin 250 mg 04/24/17 06:00 Levaquin - PO DAILY@0600 [facility] Tamsulosin HCl 0.4 mg 04/23/17 08:30 04/23/17 08:09 Flomax - PO 0.4 mg DAILY@0830 [facility] Administration Impression 1. REE vs CKD 2. nephrolithiasis 3. chronic neck pain 4. HTN with blood pressure that has been low Plan - renal function is improving - cont with fluids, will decrease rate - repeat labs in am - monitor bp - cont norvasc - monitor blood pressure - will follow Dr Camacho
[2017-04-23] MEDS: SODIUM CHLORIDE 0.45% 1,000 ML IV SCH (17:21)
--- NOTE | 2017-04-23 19:45 | PN ---
Progress Note, Physician History of Present Illness: Pt w/ knee pain - Current Medication List Current Medications: Active Medications Acetaminophen (Tylenol -) 650 mg PO Q6H PRN PRN Reason: FEVER OR PAIN Amlodipine Besylate (Norvasc -) 10 mg PO DAILY [facility] Last Admin: 04/23/17 10:12 Dose: 10 mg Heparin Sodium (Porcine) (Heparin -) 5,000 unit SQ BID [facility] Last Admin: 04/23/17 10:12 Dose: 5,000 unit Hydromorphone HCl (Dilaudid Injection -) 2 mg IM Q4H PRN PRN Reason: PAIN Sodium Chloride (1/2 Normal Saline) 1,000 mls @ 75 mls/hr IV ASDIR [facility] Last Admin: 04/23/17 17:21 Dose: 75 mls/hr Levofloxacin (Levaquin -) 250 mg PO DAILY@0600 [facility] Tamsulosin HCl (Flomax -) 0.4 mg PO DAILY@0830 [facility] Last Admin: 04/23/17 08:09 Dose: 0.4 mg - Objective Vital Signs: Vital Signs Temperature 98.1 F 04/23/17 15:54 Pulse Rate 89 04/23/17 15:54 Respiratory Rate 20 04/23/17 15:54 Blood Pressure 126/53 04/23/17 15:54 O2 Sat by Pulse Oximetry (%) 95 04/23/17 09:00 Cardiovascular: Yes: WNL, Regular Rate and Rhythm Respiratory: Yes: WNL, Regular, CTA Bilaterally Gastrointestinal: Yes: WNL, Normal Bowel Sounds Labs: CBC, BMP 04/23/17 07:45 04/23/17 07:45 Problem List - Problems (1) Kidney stone Code(s): N20.0 - CALCULUS OF KIDNEY (2) HTN (hypertension) Code(s): I10 - ESSENTIAL (PRIMARY) HYPERTENSION (3) Knee pain Code(s): M25.569 - PAIN IN UNSPECIFIED KNEE
[2017-04-23 23:07] LABS: URINE APPEARANCE CLEAR; URINE BILIRUBIN NEGATIVE (NEGATIVE); URINE BLOOD 2+ (NEGATIVE); URINE COLOR COLORLESS; URINE GLUCOSE (UA) NEGATIVE (NEGATIVE); URINE KETONE NEGATIVE (NEGATIVE); URINE LEUK ESTERASE TRACE (NEGATIVE); URINE NITRITE NEGATIVE (NEGATIVE); URINE PROTEIN NEGATIVE (NEGATIVE); URINE UROBILINOGEN NEGATIVE E.U./dl (0.2-1.0)
[2017-04-23 23:08] LABS: URINE RBC 1 /hpf (0-3); URINE WBC 2 /hpf (3-5)
[2017-04-24] MEDS: ACETAMINOPHEN 325 MG TABLET (FP) PO PRN (03:33)
[2017-04-24] MEDS: SODIUM CHLORIDE 0.45% 1,000 ML IV SCH ×2 (06:09→20:52)
[2017-04-24] MEDS: LEVOFLOXACIN 250 MG TABLET (FP) PO SCH (06:09)
[2017-04-24 08:59] LABS: ANION GAP 8 (8-16); CALCIUM 8.3 mg/dL (8.5-10.1); CO2 27 mmol/L (21-32); GLUCOSE,RANDOM 86 mg/dL (74-106)
[2017-04-24 09:00] LABS: CREATININE 1.2 mg/dL (0.7-1.3)
[2017-04-24] MEDS: amLODIPine BESYLATE 10 MG TABLET (FP) PO SCH (09:05)
[2017-04-24] MEDS: HEPARIN NA (PORCINE) 5,000 UNITS/ML 1ML VIAL SQ SCH ×2 (09:05→20:59)
[2017-04-24] MEDS: TAMSULOSIN HCL 0.4 MG CAP.ER.24H (FP) PO SCH (09:05)
--- NOTE | 2017-04-24 10:31 | PN ---
Progress Note (short form) - Note Progress Note: ID Asymptomatic NO fevers 48 hours Selected Entries 04/24/17 08:00 Temperature 98.1 F Pulse Rate 76 Respiratory 20 Rate Blood Pressure 118/76 Microbiology 04/17/17 15:00 Urine - Urine Clean Catch Urine Culture - Final Klebsiella Pneumoniae Laboratory Tests 04/23/17 04/23/17 04/24/17 07:45 07:45 07:50 WBC 10.6 H Hgb 12.6 Plt Count 165 D BUN 23 H Creatinine 1.2 Creat Clearance w eGFR 56.12 Assessment Stent placement with rupture UTI Aaliyah Plan discharge on oral levoflox x 7 days 250mg Jon PETERSON Problem List - Problems (1) Kidney stone Code(s): N20.0 - CALCULUS OF KIDNEY (2) Klebsiella infection Code(s): B96.1 - KLEBSIELLA PNEUMONIAE THE CAUSE OF DISEASES CLASSD [id number]
[2017-04-24 12:43] LABS: BASOPHIL 0.4 % (0-2.0); EOSINOPHIL 0.2 % (0-4.5); MCH 29.7 pg (25.7-33.7); MCHC 33.6 g/dl (32.0-35.9); MEAN CELL VOLUME 88.4 fl (80-96); MEAN PLT VOLUME 8.8 fl (7.5-11.1); NEUTROPHILS 74.4 % (42.8-82.8); PLATELET COUNT 169 K/MM3 (134-434); RDW 13.9 % (11.9-15.9); WHITE BLOOD COUNT 9.7 K/mm3 (4.0-10.0)
[2017-04-24 13:16] LABS: ALBUMIN 2.6 g/dl (3.4-5.0); ALK PHOS 85 U/L (45-117); BILIRUBIN,DIRECT 0.1 mg/dL (0.0-0.2); BILIRUBIN,TOTAL 0.3 mg/dL (0.2-1.0); SGOT/AST 24 U/L (15-37); SGPT/ALT 42 U/L (12-78); TOT PROT 6.4 g/dl (6.4-8.2)
[2017-04-24 14:39] LABS: URIC ACID 5.5 mg/dL (2.6-7.2)
--- NOTE | 2017-04-24 15:49 | PN ---
Progress Note, Physician History of Present Illness: Pt seen and examined at bedside. He is awake and alert. He denies flank pain. - Current Medication List Current Medications: Active Medications Acetaminophen (Tylenol -) 650 mg PO Q6H PRN PRN Reason: FEVER OR PAIN Last Admin: 04/24/17 03:33 Dose: 650 mg Amlodipine Besylate (Norvasc -) 10 mg PO DAILY [facility] Last Admin: 04/24/17 09:05 Dose: 10 mg Heparin Sodium (Porcine) (Heparin -) 5,000 unit SQ BID [facility] Last Admin: 04/24/17 09:05 Dose: 5,000 unit Hydromorphone HCl (Dilaudid Injection -) 2 mg IM Q4H PRN PRN Reason: PAIN Last Admin: 04/24/17 09:49 Dose: 2 mg Sodium Chloride (1/2 Normal Saline) 1,000 mls @ 75 mls/hr IV ASDIR [facility] Last Admin: 04/24/17 06:09 Dose: 75 mls/hr Levofloxacin (Levaquin -) 250 mg PO DAILY@0600 [facility] Last Admin: 04/24/17 06:09 Dose: 250 mg Tamsulosin HCl (Flomax -) 0.4 mg PO DAILY@0830 [facility] Last Admin: 04/24/17 09:05 Dose: 0.4 mg - Objective Vital Signs: Vital Signs Temperature 98.3 F 04/24/17 14:25 Pulse Rate 93 H 04/24/17 14:25 Respiratory Rate 20 04/24/17 14:25 Blood Pressure 121/69 04/24/17 14:25 O2 Sat by Pulse Oximetry (%) 97 04/24/17 09:00 Constitutional: Yes: Calm Eyes: Yes: Conjunctiva Clear HENT: Yes: Atraumatic Cardiovascular: Yes: S1, S2 Respiratory: Yes: CTA Bilaterally Gastrointestinal: Yes: Soft Genitourinary: No: CVA Tenderness - Left, CVA Tenderness - Right Musculoskeletal: Yes: WNL Edema: No Neurological: Yes: Oriented Psychiatric: Yes: Oriented Labs: CBC, BMP 04/24/17 11:50 04/24/17 11:50 Problem List - Problems (1) Acute kidney insufficiency Code(s): N28.9 - DISORDER OF KIDNEY AND URETER, UNSPECIFIED (2) HTN (hypertension) Code(s): I10 - ESSENTIAL (PRIMARY) HYPERTENSION (3) Kidney stone Code(s): N20.0 - CALCULUS OF KIDNEY Assessment/Plan Current Medications Generic Name Dose Route Start Last Admin Trade Name Freq PRN Reason Stop Dose Admin Acetaminophen 650 mg 04/22/17 16:34 04/24/17 03:33 Tylenol - PO 650 mg Q6H PRN Administration FEVER OR PAIN Amlodipine Besylate 10 mg 04/23/17 10:00 04/24/17 09:05 Norvasc - PO 10 mg DAILY [facility] Administration Heparin Sodium (Porcine) 5,000 unit 04/22/17 22:00 04/24/17 09:05 Heparin - SQ 5,000 unit BID [facility] Administration Hydromorphone HCl 2 mg 04/22/17 16:37 04/24/17 09:49 Dilaudid Injection - IM 2 mg Q4H PRN Administration PAIN Sodium Chloride 1,000 mls @ 75 mls/hr 04/23/17 17:15 04/24/17 06:09 1/2 Normal Saline IV 75 mls/hr ASDIR [facility] Administration Levofloxacin 250 mg 04/24/17 06:00 04/24/17 06:09 Levaquin - PO 250 mg DAILY@0600 [facility] Administration Tamsulosin HCl 0.4 mg 04/23/17 08:30 04/24/17 09:05 Flomax - PO 0.4 mg DAILY@0830 [facility] Administration Impression 1. REE vs CKD 2. nephrolithiasis 3. chronic neck pain 4. HTN with blood pressure that has been low Plan - renal function continues to improve - will decrease rate of fluids further - repeat labs in am - please avoid NSAIDs - cont norvasc - monitor blood pressure - will follow Dr Camacho
[2017-04-24] MEDS ORDERED: IBUPROFEN 400 MG TABLET (FP) PO PRN (18:38)
--- NOTE | 2017-04-24 20:27 | PN ---
Progress Note, Physician History of Present Illness: Pt c/o rt knee pain and having trouble ambulating - Current Medication List Current Medications: Active Medications Acetaminophen (Tylenol -) 650 mg PO Q6H PRN PRN Reason: FEVER OR PAIN Last Admin: 04/24/17 03:33 Dose: 650 mg Amlodipine Besylate (Norvasc -) 10 mg PO DAILY [facility] Last Admin: 04/24/17 09:05 Dose: 10 mg Heparin Sodium (Porcine) (Heparin -) 5,000 unit SQ BID [facility] Last Admin: 04/24/17 09:05 Dose: 5,000 unit Sodium Chloride (1/2 Normal Saline) 1,000 mls @ 50 mls/hr IV ASDIR [facility] Ibuprofen (Motrin -) 400 mg PO Q6H PRN PRN Reason: PAIN Last Admin: 04/24/17 18:56 Dose: 400 mg Levofloxacin (Levaquin -) 250 mg PO DAILY@0600 [facility] Last Admin: 04/24/17 06:09 Dose: 250 mg Tamsulosin HCl (Flomax -) 0.4 mg PO DAILY@0830 [facility] Last Admin: 04/24/17 09:05 Dose: 0.4 mg - Objective Vital Signs: Vital Signs Temperature 98.3 F 04/24/17 14:25 Pulse Rate 93 H 04/24/17 14:25 Respiratory Rate 20 04/24/17 14:25 Blood Pressure 121/69 04/24/17 14:25 O2 Sat by Pulse Oximetry (%) 97 04/24/17 09:00 Constitutional: Yes: Well Nourished HENT: Yes: WNL Neck: Yes: WNL, Supple Cardiovascular: Yes: WNL, Regular Rate and Rhythm Respiratory: Yes: WNL, Regular, CTA Bilaterally Gastrointestinal: Yes: WNL, Normal Bowel Sounds, Soft Extremities: Yes: Other ((+) rt knee slightly swollen and tender) Labs: CBC, BMP 04/24/17 11:50 04/24/17 11:50 Problem List - Problems (1) Kidney stone Assessment/Plan: CT scan abd showed 4-5 mm lt ureteral calculus w/ mild hydronephrosis Cont flomax S/P JJ stent placement Check pelvic US DC planning for am Code(s): N20.0 - CALCULUS OF KIDNEY (2) Knee pain Assessment/Plan: Pt has h/o gout Uric acid was normal Check xray Code(s): M25.569 - PAIN IN UNSPECIFIED KNEE (3) UTI (urinary tract infection) Assessment/Plan: Due to klebsiella Cont levaquin Code(s): N39.0 - URINARY TRACT INFECTION, SITE NOT SPECIFIED (4) HTN (hypertension) Assessment/Plan: BP stable Cont norvasc Code(s): I10 - ESSENTIAL (PRIMARY) HYPERTENSION
[2017-04-24] MEDS ORDERED: ACETAMINOPHEN 325 MG TABLET (FP) PO PRN (21:06)
[2017-04-24] MEDS ORDERED: oxyCODONE HCL 5 MG TABLET PO PRN (21:06)
[2017-04-25] MEDS: LEVOFLOXACIN 250 MG TABLET (FP) PO SCH (06:08)
[2017-04-25] MEDS ORDERED: morphine CARPU-JECT 4 MG/1 ML DISP.SYRIN IVPUSH ONE (06:15)
--- NOTE | 2017-04-25 07:58 | CONSULT ---
Consult - text type - Consultation Consultation Note: FULL CONSULT DICTATED IMP: GOUT RIGHT KNEE PLAN: HYDRATION, NSAIDS IF ABLE WITH KIDNEY ISSUE, COLCHICINE
[2017-04-25] MEDS: TAMSULOSIN HCL 0.4 MG CAP.ER.24H (FP) PO SCH (08:48)
--- NOTE | 2017-04-25 08:49 | CONS ---
DATE OF CONSULTATION: 04/25/2017 HISTORY: The patient is a 61-year-old male admitted to the hospital for urinary blockage secondary to kidney stone who had operative intervention and stent application. Patient now complaining of significant right knee pain. No recent history of fall or trauma. PAST MEDICAL HISTORY: Significant for gout. PHYSICAL EXAMINATION: He has a very sensitive and slightly erythematous right knee. No effusion. Good range of motion. Calf is soft, nontender. Good motion of ankle and toes. X-rays are negative. IMPRESSION: Probably gouty flare of his right knee especially considering the dehydration from the operative procedure and his history of gout despite the fact that his uric acid is 5.5. PLAN: I would treat the patient with colchicine, anti-inflammatories if able with his kidney issues, ice, and hydration. We will follow him. Thank you for the consultation. ISRAEL BARRY M.D. [id number]
[2017-04-25 08:50] LABS: ANION GAP 8 (8-16); CALCIUM 8.7 mg/dL (8.5-10.1); CO2 29 mmol/L (21-32); CREATININE 1.2 mg/dL (0.7-1.3); GLUCOSE,RANDOM 99 mg/dL (74-106)
--- NOTE | 2017-04-25 09:00 | PN ---
Progress Note, Physician Chief Complaint: ID Complains of severe pains knee right foot excruciating Afebrile - Current Medication List Current Medications: Active Medications Acetaminophen (Tylenol -) 650 mg PO Q6H PRN PRN Reason: FEVER OR PAIN Last Admin: 04/24/17 03:33 Dose: 650 mg Acetaminophen (Tylenol -) 325 mg PO Q6H PRN PRN Reason: PAIN Last Admin: 04/24/17 21:21 Dose: 325 mg Amlodipine Besylate (Norvasc -) 10 mg PO DAILY [facility] Last Admin: 04/24/17 09:05 Dose: 10 mg Heparin Sodium (Porcine) (Heparin -) 5,000 unit SQ BID [facility] Last Admin: 04/24/17 20:59 Dose: 5,000 unit Sodium Chloride (1/2 Normal Saline) 1,000 mls @ 50 mls/hr IV ASDIR [facility] Last Admin: 04/24/17 20:52 Dose: 50 mls/hr Levofloxacin (Levaquin -) 250 mg PO DAILY@0600 [facility] Last Admin: 04/25/17 06:08 Dose: 250 mg Oxycodone HCl (Roxicodone -) 5 mg PO Q6H PRN PRN Reason: PAIN Last Admin: 04/24/17 21:20 Dose: 5 mg Tamsulosin HCl (Flomax -) 0.4 mg PO DAILY@0830 [facility] Last Admin: 04/25/17 08:48 Dose: 0.4 mg - Objective Vital Signs: Vital Signs Temperature 98.5 F 04/25/17 08:24 Pulse Rate 102 H 04/25/17 08:24 Respiratory Rate 18 04/25/17 08:24 Blood Pressure 125/73 04/25/17 08:24 O2 Sat by Pulse Oximetry (%) 96 04/24/17 21:00 Constitutional: Yes: Well Nourished, No Distress Eyes: Yes: WNL, Conjunctiva Clear HENT: Yes: WNL, Atraumatic Neck: Yes: WNL, Supple Cardiovascular: Yes: Regular Rate and Rhythm, S1, S2 Respiratory: Yes: WNL, Regular, CTA Bilaterally Extremities: Yes: Other (Pain swelling knee foot Painful) Labs: CBC, BMP 04/24/17 11:50 Problem List - Problems (1) Kidney stone Code(s): N20.0 - CALCULUS OF KIDNEY (2) Klebsiella infection Code(s): B96.1 - KLEBSIELLA PNEUMONIAE THE CAUSE [facility]EASES [facility] Assessment/Plan Microbiology 04/19/17 21:14 Urine - Urine - Catheterized Urine Culture - Final NO GROWTH OBTAINED 04/17/17 15:00 Urine - Urine Clean Catch Urine Culture - Final Klebsiella Pneumoniae 04/21/17 17:55 Blood - Peripheral Venous Blood Culture - Preliminary NO GROWTH OBTAINED AFTER 72 HOURS, INCUBATION TO CONTINUE FOR 2 DAYS. 04/21/17 17:30 Blood - Peripheral Venous Blood Culture - Preliminary NO GROWTH OBTAINED AFTER 72 HOURS, INCUBATION TO CONTINUE FOR 2 DAYS. 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 Uric acid stones ? Allopurinol Jon PETERSON
[2017-04-25] MEDS: amLODIPine BESYLATE 10 MG TABLET (FP) PO SCH (09:11)
[2017-04-25] MEDS: HEPARIN NA (PORCINE) 5,000 UNITS/ML 1ML VIAL SQ SCH ×2 (09:11→20:59)
[2017-04-25] MEDS ORDERED: COLCHICINE 0.6 MG TABLET (FP) PO SCH (10:00)
[2017-04-25] MEDS ORDERED: methylPREDNISolone NA SUCC 40 MG/1 ML VIAL IVPB SCH (10:00)
--- NOTE | 2017-04-25 15:24 | PN ---
Progress Note, Physician History of Present Illness: Pt seen and examined at bedside. He is awake and alert. He complains of right knee pain. - Current Medication List Current Medications: Active Medications Acetaminophen (Tylenol -) 650 mg PO Q6H PRN PRN Reason: FEVER OR PAIN Last Admin: 04/24/17 03:33 Dose: 650 mg Acetaminophen (Tylenol -) 325 mg PO Q6H PRN PRN Reason: PAIN Last Admin: 04/24/17 21:21 Dose: 325 mg Amlodipine Besylate (Norvasc -) 10 mg PO DAILY [facility] Last Admin: 04/25/17 09:11 Dose: 10 mg Colchicine (Colcrys -) 0.6 mg PO BID [facility] Last Admin: 04/25/17 09:11 Dose: 0.6 mg Heparin Sodium (Porcine) (Heparin -) 5,000 unit SQ BID [facility] Last Admin: 04/25/17 09:11 Dose: 5,000 unit Sodium Chloride (1/2 Normal Saline) 1,000 mls @ 50 mls/hr IV ASDIR [facility] Last Admin: 04/24/17 20:52 Dose: 50 mls/hr Levofloxacin (Levaquin -) 250 mg PO DAILY@0600 [facility] Last Admin: 04/25/17 06:08 Dose: 250 mg Methylprednisolone Sodium Succinate (Solu-Medrol -) 40 mg IVPB Q8H-IV [facility] Last Admin: 04/25/17 09:11 Dose: 40 mg Oxycodone HCl (Roxicodone -) 5 mg PO Q6H PRN PRN Reason: PAIN Last Admin: 04/24/17 21:20 Dose: 5 mg Tamsulosin HCl (Flomax -) 0.4 mg PO DAILY@0830 [facility] Last Admin: 04/25/17 08:48 Dose: 0.4 mg - Objective Vital Signs: Vital Signs Temperature 97.5 F L 04/25/17 14:00 Pulse Rate 106 H 04/25/17 14:00 Respiratory Rate 18 04/25/17 14:00 Blood Pressure 117/65 04/25/17 14:00 O2 Sat by Pulse Oximetry (%) 96 04/25/17 09:00 Constitutional: Yes: Calm Eyes: Yes: Conjunctiva Clear HENT: Yes: Atraumatic Neck: Yes: Supple Cardiovascular: Yes: S1, S2 Respiratory: Yes: CTA Bilaterally Gastrointestinal: Yes: Normal Bowel Sounds, Soft Genitourinary: Yes: WNL Musculoskeletal: Yes: Joint Stiffness, Joint Swelling Edema: No Neurological: Yes: Oriented Psychiatric: Yes: Oriented Labs: CBC, BMP 04/24/17 11:50 04/25/17 06:30 Problem List - Problems (1) Acute kidney insufficiency Code(s): N28.9 - DISORDER OF KIDNEY AND URETER, UNSPECIFIED (2) HTN (hypertension) Code(s): I10 - ESSENTIAL (PRIMARY) HYPERTENSION (3) Kidney stone Code(s): N20.0 - CALCULUS OF KIDNEY Assessment/Plan Current Medications Generic Name Dose Route Start Last Admin Trade Name Freq PRN Reason Stop Dose Admin Acetaminophen 650 mg 04/22/17 16:34 04/24/17 03:33 Tylenol - PO 650 mg Q6H PRN Administration FEVER OR PAIN Acetaminophen 325 mg 04/24/17 21:06 04/24/17 21:21 Tylenol - PO 325 mg Q6H PRN Administration PAIN Amlodipine Besylate 10 mg 04/23/17 10:00 04/25/17 09:11 Norvasc - PO 10 mg DAILY [facility] Administration Colchicine 0.6 mg 04/25/17 10:00 04/25/17 09:11 Colcrys - PO 0.6 mg BID [facility] Administration Heparin Sodium (Porcine) 5,000 unit 04/22/17 22:00 04/25/17 09:11 Heparin - SQ 5,000 unit BID [facility] Administration Sodium Chloride 1,000 mls @ 50 mls/hr 04/24/17 15:49 04/24/17 20:52 1/2 Normal Saline IV 50 mls/hr ASDIR [facility] Administration Levofloxacin 250 mg 04/24/17 06:00 04/25/17 06:08 Levaquin - PO 250 mg DAILY@0600 [facility] Administration Methylprednisolone Sodium Succinate 40 mg 04/25/17 10:00 04/25/17 09:11 Solu-Medrol - IVPB 40 mg Q8H-IV [facility] Administration Oxycodone HCl 5 mg 04/24/17 21:06 04/24/17 21:20 Roxicodone - PO 5 mg Q6H PRN Administration PAIN Tamsulosin HCl 0.4 mg 04/23/17 08:30 04/25/17 08:48 Flomax - PO 0.4 mg DAILY@0830 [facility] Administration Impression 1. REE vs CKD 2. nephrolithiasis 3. chronic neck pain 4. HTN with blood pressure that has been low 5. gout Plan - cont with fluids - change steroids to prednisone 40 mg - can stop colchicine - ortho input appreciated - please avoid NSAIDs - cont norvasc - monitor blood pressure - will follow Dr Camacho
--- NOTE | 2017-04-25 19:32 | PN ---
Progress Note, Physician History of Present Illness: Pt c/o rt knee pain and having trouble ambulating Pain is slightly better today w/ less swelling - Current Medication List Current Medications: Active Medications Acetaminophen (Tylenol -) 650 mg PO Q6H PRN PRN Reason: FEVER OR PAIN Last Admin: 04/24/17 03:33 Dose: 650 mg Acetaminophen (Tylenol -) 325 mg PO Q6H PRN PRN Reason: PAIN Last Admin: 04/24/17 21:21 Dose: 325 mg Amlodipine Besylate (Norvasc -) 10 mg PO DAILY [facility] Last Admin: 04/25/17 09:11 Dose: 10 mg Heparin Sodium (Porcine) (Heparin -) 5,000 unit SQ BID [facility] Last Admin: 04/25/17 09:11 Dose: 5,000 unit Sodium Chloride (1/2 Normal Saline) 1,000 mls @ 50 mls/hr IV ASDIR [facility] Last Admin: 04/24/17 20:52 Dose: 50 mls/hr Levofloxacin (Levaquin -) 250 mg PO DAILY@0600 [facility] Last Admin: 04/25/17 06:08 Dose: 250 mg Oxycodone HCl (Roxicodone -) 5 mg PO Q6H PRN PRN Reason: PAIN Last Admin: 04/24/17 21:20 Dose: 5 mg Prednisone (Deltasone -) 40 mg PO DAILY [facility] Tamsulosin HCl (Flomax -) 0.4 mg PO DAILY@0830 [facility] Last Admin: 04/25/17 08:48 Dose: 0.4 mg - Objective Vital Signs: Vital Signs Temperature 97.5 F L 04/25/17 14:00 Pulse Rate 106 H 04/25/17 14:00 Respiratory Rate 18 04/25/17 14:00 Blood Pressure 117/65 04/25/17 14:00 O2 Sat by Pulse Oximetry (%) 96 04/25/17 09:00 Neck: Yes: Other ((+) cervical brace) Cardiovascular: Yes: WNL, Regular Rate and Rhythm Respiratory: Yes: WNL, Regular, CTA Bilaterally Gastrointestinal: Yes: WNL, Normal Bowel Sounds, Soft Extremities: Yes: Other ((+) swelling Rt knee) Labs: CBC, BMP 04/24/17 11:50 04/25/17 06:30 Problem List - Problems (1) Kidney stone Assessment/Plan: CT scan abd showed 4-5 mm lt ureteral calculus w/ mild hydronephrosis Cont flomax S/P JJ stent placement Pelvic US unremarkable Code(s): N20.0 - CALCULUS OF KIDNEY (2) Knee pain Assessment/Plan: Probable gout Uric acid was normal Cont prednisone No NSAIDS due to ARF Code(s): M25.569 - PAIN IN UNSPECIFIED KNEE (3) UTI (urinary tract infection) Assessment/Plan: Due to klebsiella Cont levaquin Code(s): N39.0 - URINARY TRACT INFECTION, SITE NOT SPECIFIED (4) HTN (hypertension) Assessment/Plan: BP stable Cont norvasc Code(s): I10 - ESSENTIAL (PRIMARY) HYPERTENSION
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
[2017-04-25] MEDS: SODIUM CHLORIDE 0.45% 1,000 ML IV SCH (20:32)
[2017-04-25 22:04] LABS: SYNOVIAL FLUID LYMPHOCYTES 1 %; SYNOVIAL FLUID NEUTROPHILS 88 %
[2017-04-25 22:05] LABS: SYNOVIAL FLUID MACROPHAGES 1 %; SYNOVIAL FLUID MONOCYTES 10 %
[2017-04-26] MEDS: LEVOFLOXACIN 250 MG TABLET (FP) PO SCH (06:03)
[2017-04-26 08:24] LABS: ALBUMIN 2.9 g/dl (3.4-5.0); ALK PHOS 94 U/L (45-117); ANION GAP 8 (8-16); BILIRUBIN,TOTAL 0.4 mg/dL (0.2-1.0); CALCIUM 8.6 mg/dL (8.5-10.1); CO2 27 mmol/L (21-32); CREATININE 1.1 mg/dL (0.7-1.3); GLUCOSE,RANDOM 119 mg/dL (74-106); SGOT/AST 42 U/L (15-37); SGPT/ALT 69 U/L (12-78); TOT PROT 6.9 g/dl (6.4-8.2)
[2017-04-26] MEDS: predniSONE 20 MG TABLET (UD) PO SCH (09:03)
[2017-04-26] MEDS: amLODIPine BESYLATE 10 MG TABLET (FP) PO SCH (09:04)
[2017-04-26] MEDS: TAMSULOSIN HCL 0.4 MG CAP.ER.24H (FP) PO SCH (09:04)
[2017-04-26] MEDS: HEPARIN NA (PORCINE) 5,000 UNITS/ML 1ML VIAL SQ SCH ×2 (09:04→21:22)
--- NOTE | 2017-04-26 09:13 | PN ---
Progress Note, Physician Chief Complaint: ID Knee much better today Seen by Dr Segura Yesterday I started steroids & colchicine Levofloxacin - Current Medication List Current Medications: Active Medications Acetaminophen (Tylenol -) 650 mg PO Q6H PRN PRN Reason: FEVER OR PAIN Last Admin: 04/24/17 03:33 Dose: 650 mg Acetaminophen (Tylenol -) 325 mg PO Q6H PRN PRN Reason: PAIN Last Admin: 04/24/17 21:21 Dose: 325 mg Amlodipine Besylate (Norvasc -) 10 mg PO DAILY [facility] Last Admin: 04/26/17 09:04 Dose: 10 mg Heparin Sodium (Porcine) (Heparin -) 5,000 unit SQ BID [facility] Last Admin: 04/26/17 09:04 Dose: 5,000 unit Sodium Chloride (1/2 Normal Saline) 1,000 mls @ 50 mls/hr IV ASDIR [facility] Last Admin: 04/25/17 20:32 Dose: 50 mls/hr Levofloxacin (Levaquin -) 250 mg PO DAILY@0600 [facility] Last Admin: 04/26/17 06:03 Dose: 250 mg Oxycodone HCl (Roxicodone -) 5 mg PO Q6H PRN PRN Reason: PAIN Last Admin: 04/24/17 21:20 Dose: 5 mg Prednisone (Deltasone -) 40 mg PO DAILY [facility] Last Admin: 04/26/17 09:03 Dose: 40 mg Tamsulosin HCl (Flomax -) 0.4 mg PO DAILY@0830 [facility] Last Admin: 04/26/17 09:04 Dose: 0.4 mg - Objective Vital Signs: Vital Signs Temperature 98.3 F 04/26/17 06:00 Pulse Rate 80 04/26/17 06:00 Respiratory Rate 20 04/25/17 22:37 Blood Pressure 130/78 04/26/17 06:00 O2 Sat by Pulse Oximetry (%) 95 04/25/17 20:08 Constitutional: Yes: Well Nourished, No Distress HENT: Yes: WNL, Atraumatic Neck: Yes: WNL, Supple Cardiovascular: Yes: S1, S2 Respiratory: Yes: WNL, Regular, CTA Bilaterally Gastrointestinal: Yes: WNL, Normal Bowel Sounds, Soft. No: Tenderness Extremities: Yes: Other (right knee less warm red less tender) Labs: CBC, BMP 04/24/17 11:50 04/26/17 06:05 Problem List - Problems (1) Kidney stone Code(s): N20.0 - CALCULUS OF KIDNEY (2) Klebsiella infection Code(s): B96.1 - KLEBSIELLA PNEUMONIAE THE CAUSE OF DISEASES CLASSD [id number] (3) Acute gout Code(s): M10.9 - GOUT, UNSPECIFIED Assessment/Plan Laboratory Tests 04/24/17 04/24/17 04/25/17 07:50 11:50 20:30 WBC 9.7 Hgb 11.8 Plt Count 169 BUN Creatinine Uric Acid 5.5 AST ALT Alkaline Phosphatase Synovial Source Synovial fluid Synovial WBC 4412 Synovial RBC 32072 Synovial Neutrophils 88 Synovial Macrophages 1 Synovial Crystals Pending 04/26/17 06:05 WBC Hgb Plt Count BUN 25 H Creatinine 1.1 Uric Acid AST 42 H D ALT 69 D Alkaline Phosphatase 94 Synovial Source Synovial WBC Synovial RBC Synovial Neutrophils Synovial Macrophages Synovial Crystals Assessment Acute gout Klebsiella UTI KIdney stone with stent and replacement of stent Plan Stop antibiotics tomorrow steroids ? discharge on no antibiotics Jon PETERSON
[2017-04-26] MEDS: ACETAMINOPHEN 325 MG TABLET (FP) PO PRN ×2 (13:51→18:43)
--- NOTE | 2017-04-26 15:19 | PN ---
Progress Note, Physician History of Present Illness: Pt seen and examined at bedside. He is awake and alert. He still complains of right knee pain. - Current Medication List Current Medications: Active Medications Acetaminophen (Tylenol -) 650 mg PO Q6H PRN PRN Reason: FEVER OR PAIN Last Admin: 04/26/17 13:51 Dose: 650 mg Acetaminophen (Tylenol -) 325 mg PO Q6H PRN PRN Reason: PAIN Last Admin: 04/24/17 21:21 Dose: 325 mg Amlodipine Besylate (Norvasc -) 10 mg PO DAILY [facility] Last Admin: 04/26/17 09:04 Dose: 10 mg Heparin Sodium (Porcine) (Heparin -) 5,000 unit SQ BID [facility] Last Admin: 04/26/17 09:04 Dose: 5,000 unit Sodium Chloride (1/2 Normal Saline) 1,000 mls @ 50 mls/hr IV ASDIR [facility] Last Admin: 04/25/17 20:32 Dose: 50 mls/hr Levofloxacin (Levaquin -) 250 mg PO DAILY@0600 [facility] Last Admin: 04/26/17 06:03 Dose: 250 mg Oxycodone HCl (Roxicodone -) 5 mg PO Q6H PRN PRN Reason: PAIN Last Admin: 04/24/17 21:20 Dose: 5 mg Prednisone (Deltasone -) 40 mg PO DAILY [facility] Last Admin: 04/26/17 09:03 Dose: 40 mg Tamsulosin HCl (Flomax -) 0.4 mg PO DAILY@0830 [facility] Last Admin: 04/26/17 09:04 Dose: 0.4 mg - Objective Vital Signs: Vital Signs Temperature 98.9 F 04/26/17 14:50 Pulse Rate 85 04/26/17 14:50 Respiratory Rate 20 04/26/17 14:50 Blood Pressure 122/67 04/26/17 14:50 O2 Sat by Pulse Oximetry (%) 95 04/25/17 20:08 Constitutional: Yes: Calm Eyes: Yes: Conjunctiva Clear HENT: Yes: Atraumatic Cardiovascular: Yes: S1, S2 Respiratory: Yes: CTA Bilaterally Gastrointestinal: Yes: Soft Genitourinary: Yes: WNL Musculoskeletal: Yes: Joint Swelling, Other (right knee pain) Edema: No Neurological: Yes: Oriented Psychiatric: Yes: Oriented Labs: CBC, BMP 04/24/17 11:50 07/04/17 06:05 Problem List - Problems (1) Acute kidney insufficiency Code(s): N28.9 - DISORDER OF KIDNEY AND URETER, UNSPECIFIED (2) HTN (hypertension) Code(s): I10 - ESSENTIAL (PRIMARY) HYPERTENSION (3) Kidney stone Code(s): N20.0 - CALCULUS OF KIDNEY Assessment/Plan Current Medications Generic Name Dose Route Start Last Admin Trade Name Freq PRN Reason Stop Dose Admin Acetaminophen 650 mg 04/22/17 16:34 04/26/17 13:51 Tylenol - PO 650 mg Q6H PRN Administration FEVER OR PAIN Acetaminophen 325 mg 04/24/17 21:06 04/24/17 21:21 Tylenol - PO 325 mg Q6H PRN Administration PAIN Amlodipine Besylate 10 mg 04/23/17 10:00 04/26/17 09:04 Norvasc - PO 10 mg DAILY WU Administration Heparin Sodium (Porcine) 5,000 unit 04/22/17 22:00 04/26/17 09:04 Heparin - SQ 5,000 unit BID WU Administration Sodium Chloride 1,000 mls @ 50 mls/hr 04/24/17 15:49 04/25/17 20:32 1/2 Normal Saline IV 50 mls/hr ASDIR WU Administration Levofloxacin 250 mg 04/24/17 06:00 04/26/17 06:03 Levaquin - PO 250 mg DAILY@0600 WU Administration Oxycodone HCl 5 mg 04/24/17 21:06 04/24/17 21:20 Roxicodone - PO 5 mg Q6H PRN Administration PAIN Prednisone 40 mg 04/26/17 10:00 04/26/17 09:03 Deltasone - PO 40 mg DAILY WU Administration Tamsulosin HCl 0.4 mg 04/23/17 08:30 04/26/17 09:04 Flomax - PO 0.4 mg DAILY@0830 WU Administration Impression 1. REE 2. nephrolithiasis 3. chronic neck pain 4. HTN with blood pressure that has been low 5. gout Plan - renal function is stabilizing - cont with current meds - rheumatology input appreciated - follow up result for arthrocentesis - please avoid NSAIDs - cont norvasc - monitor blood pressure - will follow Dr Camacho
[2017-04-26] MEDS: SODIUM CHLORIDE 0.45% 1,000 ML IV SCH (21:23)
--- NOTE | 2017-04-26 23:52 | PN ---
Progress Note, Physician History of Present Illness: Pt states that pain is worse today and having difficulty ambulating - Current Medication List Current Medications: Active Medications Acetaminophen (Tylenol -) 650 mg PO Q6H PRN PRN Reason: FEVER OR PAIN Last Admin: 04/26/17 18:43 Dose: 650 mg Acetaminophen (Tylenol -) 325 mg PO Q6H PRN PRN Reason: PAIN Last Admin: 04/24/17 21:21 Dose: 325 mg Amlodipine Besylate (Norvasc -) 10 mg PO DAILY [facility] Last Admin: 04/26/17 09:04 Dose: 10 mg Heparin Sodium (Porcine) (Heparin -) 5,000 unit SQ BID [facility] Last Admin: 04/26/17 21:22 Dose: 5,000 unit Sodium Chloride (1/2 Normal Saline) 1,000 mls @ 50 mls/hr IV ASDIR [facility] Last Admin: 04/26/17 21:23 Dose: 50 mls/hr Levofloxacin (Levaquin -) 250 mg PO DAILY@0600 [facility] Last Admin: 04/26/17 06:03 Dose: 250 mg Oxycodone HCl (Roxicodone -) 5 mg PO Q6H PRN PRN Reason: PAIN Last Admin: 04/24/17 21:20 Dose: 5 mg Prednisone (Deltasone -) 40 mg PO DAILY [facility] Last Admin: 04/26/17 09:03 Dose: 40 mg Tamsulosin HCl (Flomax -) 0.4 mg PO DAILY@0830 [facility] Last Admin: 04/26/17 09:04 Dose: 0.4 mg - Objective Vital Signs: Vital Signs Temperature 98.6 F 04/26/17 18:00 Pulse Rate 99 H 04/26/17 18:00 Respiratory Rate 20 04/26/17 18:00 Blood Pressure 130/75 04/26/17 18:00 O2 Sat by Pulse Oximetry (%) 97 04/26/17 20:21 Cardiovascular: Yes: WNL, Regular Rate and Rhythm Respiratory: Yes: WNL, Regular, CTA Bilaterally Gastrointestinal: Yes: WNL, Normal Bowel Sounds, Soft Extremities: Yes: Other ((+) pain on palpation of rt knee) Labs: CBC, BMP 04/24/17 11:50 04/26/17 06:05 Problem List - Problems (1) Kidney stone Assessment/Plan: CT scan abd showed 4-5 mm lt ureteral calculus w/ mild hydronephrosis Cont flomax S/P JJ stent placement Pelvic US unremarkable Code(s): N20.0 - CALCULUS OF KIDNEY (2) Knee pain Assessment/Plan: S/P tap of rt knee fusion Inflammatory arthritis Check fluid cytology Cont prednisone Uric acid was normal Code(s): M25.569 - PAIN IN UNSPECIFIED KNEE (3) UTI (urinary tract infection) Assessment/Plan: Due to klebsiella Cont levaquin Code(s): N39.0 - URINARY TRACT INFECTION, SITE NOT SPECIFIED (4) HTN (hypertension) Code(s): I10 - ESSENTIAL (PRIMARY) HYPERTENSION
[2017-04-27] MEDS: LEVOFLOXACIN 250 MG TABLET (FP) PO SCH (06:12)
[2017-04-27] MEDS: TAMSULOSIN HCL 0.4 MG CAP.ER.24H (FP) PO SCH (08:22)
[2017-04-27] MEDS: predniSONE 20 MG TABLET (UD) PO SCH (09:09)
[2017-04-27] MEDS: HEPARIN NA (PORCINE) 5,000 UNITS/ML 1ML VIAL SQ SCH ×2 (09:10→21:20)
[2017-04-27] MEDS: amLODIPine BESYLATE 10 MG TABLET (FP) PO SCH (09:10)
--- NOTE | 2017-04-27 12:22 | PN ---
Progress Note (short form) - Note Progress Note: Pt seen and examined. Right knee gout is improving, but still c/o pain in the right knee. Overall right knee is still hot, mildly swollen, tender to touch. He is able to weight bear, able to ambulate. WBC = decreased to 9.7 Synovial fluid WBC = 4412 Synovial fluid crystals pending Overall the pt is improving. Con't with gout medication. Nothing else to do orthopedically at this time
--- NOTE | 2017-04-27 12:39 | PATH ---
Cytology Non-Gynecological Report Patient Name: [facility]. Rec. #: [id number] /Age/Gender: 1955 (Age: 61) / M Account: [id number] Location: [address] [place] [address]/[facility] Taken: 04/24/2017 Received: 04/25/2017 Reported: 04/27/2017 Physicians: Lilia Melendez M.D. Specimen(s) Received URINE VOIDED Clinical History Not given Final Diagnosis URINE FOR CYTOLOGY: SATISFACTORY FOR EVALUATION. NO MALIGNANT CELLS IDENTIFIED. REACTIVE UROTHELIAL CELLS. ACUTE INFLAMMATION. DEGENERATED RED BLOOD CELLS. Electronically Signed Loco Mcgrath M.D. Gross Description Received is 25 cc of clear yellow fluid fresh. Two cytofunnel slides are made.
--- NOTE | 2017-04-27 13:19 | PN ---
Progress Note, Physician History of Present Illness: Pt seen and examined at bedside. His knee pain is mildly improved. - Current Medication List Current Medications: Active Medications Acetaminophen (Tylenol -) 650 mg PO Q6H PRN PRN Reason: FEVER OR PAIN Last Admin: 04/26/17 18:43 Dose: 650 mg Acetaminophen (Tylenol -) 325 mg PO Q6H PRN PRN Reason: PAIN Last Admin: 04/24/17 21:21 Dose: 325 mg Amlodipine Besylate (Norvasc -) 10 mg PO DAILY [facility] Last Admin: 04/27/17 09:10 Dose: 10 mg Heparin Sodium (Porcine) (Heparin -) 5,000 unit SQ BID [facility] Last Admin: 04/27/17 09:10 Dose: 5,000 unit Sodium Chloride (1/2 Normal Saline) 1,000 mls @ 50 mls/hr IV ASDIR [facility] Last Admin: 04/26/17 21:23 Dose: 50 mls/hr Oxycodone HCl (Roxicodone -) 5 mg PO Q6H PRN PRN Reason: PAIN Last Admin: 04/24/17 21:20 Dose: 5 mg Prednisone (Deltasone -) 40 mg PO DAILY [facility] Last Admin: 04/27/17 09:09 Dose: 40 mg Tamsulosin HCl (Flomax -) 0.4 mg PO DAILY@0830 [facility] Last Admin: 04/27/17 08:22 Dose: 0.4 mg - Objective Vital Signs: Vital Signs Temperature 98.3 F 04/27/17 09:00 Pulse Rate 91 H 04/27/17 09:00 Respiratory Rate 18 04/27/17 09:00 Blood Pressure 138/79 04/27/17 09:00 O2 Sat by Pulse Oximetry (%) 97 04/27/17 09:00 Constitutional: Yes: Calm Eyes: Yes: Conjunctiva Clear HENT: Yes: Atraumatic Neck: Yes: Supple Cardiovascular: Yes: S1, S2 Respiratory: Yes: CTA Bilaterally Gastrointestinal: Yes: Normal Bowel Sounds, Soft Genitourinary: Yes: WNL Musculoskeletal: Yes: Other (knee pain) Edema: No Neurological: Yes: Oriented Psychiatric: Yes: Oriented Labs: CBC, BMP 04/24/17 11:50 04/26/17 06:05 Problem List - Problems (1) Acute kidney insufficiency Code(s): N28.9 - DISORDER OF KIDNEY AND URETER, UNSPECIFIED (2) HTN (hypertension) Code(s): I10 - ESSENTIAL (PRIMARY) HYPERTENSION (3) Kidney stone Code(s): N20.0 - CALCULUS OF KIDNEY Assessment/Plan Current Medications Generic Name Dose Route Start Last Admin Trade Name Freq PRN Reason Stop Dose Admin Acetaminophen 650 mg 04/22/17 16:34 04/26/17 18:43 Tylenol - PO 650 mg Q6H PRN Administration FEVER OR PAIN Acetaminophen 325 mg 04/24/17 21:06 04/24/17 21:21 Tylenol - PO 325 mg Q6H PRN Administration PAIN Amlodipine Besylate 10 mg 04/23/17 10:00 04/27/17 09:10 Norvasc - PO 10 mg DAILY [facility]U Administration Heparin Sodium (Porcine) 5,000 unit 04/22/17 22:00 04/27/17 09:10 Heparin - SQ 5,000 unit BID [facility]U Administration Sodium Chloride 1,000 mls @ 50 mls/hr 04/24/17 15:49 04/26/17 21:23 1/2 Normal Saline IV 50 mls/hr ASDIR WU Administration Oxycodone HCl 5 mg 04/24/17 21:06 04/24/17 21:20 Roxicodone - PO 5 mg Q6H PRN Administration PAIN Prednisone 40 mg 04/26/17 10:00 04/27/17 09:09 Deltasone - PO 40 mg DAILY WU Administration Tamsulosin HCl 0.4 mg 04/23/17 08:30 04/27/17 08:22 Flomax - PO 0.4 mg DAILY@0830 [facility]U Administration Laboratory Tests 04/25/17 20:30 Synovial Source Synovial fluid Synovial WBC 4412 Synovial RBC 43128 Synovial Neutrophils 88 Synovial Lymphocytes 1 Synovial Monocytes 10 Synovial Macrophages 1 Synovial Crystals Pending Impression 1. REE 2. nephrolithiasis 3. chronic neck pain 4. HTN with blood pressure that has been low 5. gout Plan - renal function is stable - will stop fluids - repeat labs in am - follow up crystal in synovial fluid - cont with current meds - will follow PRN - please avoid NSAIDs - cont norvasc - monitor blood pressure - will follow Dr Camacho
--- NOTE | 2017-04-27 21:42 | PN ---
Progress Note, Physician History of Present Illness: Rt knee is feeling better w/ less swelling - Current Medication List Current Medications: Active Medications Acetaminophen (Tylenol -) 650 mg PO Q6H PRN PRN Reason: FEVER OR PAIN Last Admin: 04/26/17 18:43 Dose: 650 mg Acetaminophen (Tylenol -) 325 mg PO Q6H PRN PRN Reason: PAIN Last Admin: 04/24/17 21:21 Dose: 325 mg Amlodipine Besylate (Norvasc -) 10 mg PO DAILY [facility] Last Admin: 04/27/17 09:10 Dose: 10 mg Heparin Sodium (Porcine) (Heparin -) 5,000 unit SQ BID [facility] Last Admin: 04/27/17 21:20 Dose: 5,000 unit Sodium Chloride (1/2 Normal Saline) 1,000 mls @ 50 mls/hr IV ASDIR [facility] Last Admin: 04/26/17 21:23 Dose: 50 mls/hr Prednisone (Deltasone -) 40 mg PO DAILY [facility] Last Admin: 04/27/17 09:09 Dose: 40 mg Tamsulosin HCl (Flomax -) 0.4 mg PO DAILY@0830 [facility] Last Admin: 04/27/17 08:22 Dose: 0.4 mg - Objective Vital Signs: Vital Signs Temperature 98.4 F 04/27/17 18:55 Pulse Rate 105 H 04/27/17 18:55 Respiratory Rate 21 04/27/17 18:55 Blood Pressure 145/96 04/27/17 18:55 O2 Sat by Pulse Oximetry (%) 97 04/27/17 09:00 Constitutional: Yes: No Distress HENT: Yes: Other ((+) cervical brace) Cardiovascular: Yes: WNL, Regular Rate and Rhythm Respiratory: Yes: WNL, Regular, CTA Bilaterally Gastrointestinal: Yes: WNL, Normal Bowel Sounds Edema: No Labs: CBC, BMP 04/24/17 11:50 04/26/17 06:05 Problem List - Problems (1) Knee pain Assessment/Plan: S/P tap of rt knee fusion Inflammatory arthritis Fluid count WBC >4000 Cyrstals pending from fluid Will decrease prednisone Code(s): M25.569 - PAIN IN UNSPECIFIED KNEE (2) Kidney stone Assessment/Plan: CT scan abd showed 4-5 mm lt ureteral calculus w/ mild hydronephrosis Cont flomax Will speak w/ uro about JJ stent removal prior to dc Pelvic US unremarkable Code(s): N20.0 - CALCULUS OF KIDNEY (3) UTI (urinary tract infection) Assessment/Plan: Due to klebsiella DC levaquin Code(s): N39.0 - URINARY TRACT INFECTION, SITE NOT SPECIFIED (4) HTN (hypertension) Assessment/Plan: BP stable Cont norvasc Code(s): I10 - ESSENTIAL (PRIMARY) HYPERTENSION
[2017-04-27] MEDS ORDERED: predniSONE 10 MG TABLET (UD) PO SCH (21:46)
--- NOTE | 2017-04-27 22:17 | PN ---
Progress Note (short form) - Note Progress Note: 61 y/o male s/p lt laser lithotripsy jj stent placement. Pt had stent readjustment 48 hrs post-op due to cephalic jj stent migration. Presently pt asymptomatic, sonogram reveals no hydro or collection. Pt is afebrile, voiding well. Ct shows 5 mm nonobstructing lt renal stone and lt jj stent in proper position. Pt urologically cleared for d/c. Will d/c stent in office as outpatient on 05/04 2 pm.
[2017-04-28] MEDS: ACETAMINOPHEN 325 MG TABLET (FP) PO PRN (00:58)
[2017-04-28] MEDS: SODIUM CHLORIDE 0.45% 1,000 ML IV SCH (06:22)
[2017-04-28] MEDS: TAMSULOSIN HCL 0.4 MG CAP.ER.24H (FP) PO SCH (08:48)
--- NOTE | 2017-04-28 09:04 | PN ---
Progress Note (short form) - Note Progress Note: Ortho Pt seen and examined - right knee gout s/p cortisone injection Laboratory Tests 04/24/17 04/25/17 11:50 20:30 WBC 9.7 Hgb 11.8 Hct 35.2 L Plt Count 169 Synovial WBC 4412 Synovial RBC 00467 Synovial Neutrophils 88 Synovial Lymphocytes 1 Synovial Monocytes 10 Synovial Macrophages 1 Synovial Crystals Pending +ttp, minimal effusion, rom 0-80, calf soft, nt nvi a/p continue with gout meds PT eval will follow d/w Dr. Carmona
[2017-04-28] MEDS: amLODIPine BESYLATE 10 MG TABLET (FP) PO SCH (10:48)
[2017-04-28] MEDS: HEPARIN NA (PORCINE) 5,000 UNITS/ML 1ML VIAL SQ SCH (10:49)
[2017-04-28] MEDS ORDERED: morphine CARPU-JECT 2 MG/1 ML DISP.SYRIN IVPB ONE (13:00)
[2017-04-28 14:28] VITALS: BP 130/82; PULSE 94; TEMP 98
--- NOTE | 2017-04-28 14:46 | PN ---
Progress Note, Physician History of Present Illness: Pt seen and examined at bedside. He is awake and alert. He still complains of knee pain. - Current Medication List Current Medications: Active Medications Acetaminophen (Tylenol -) 650 mg PO Q6H PRN PRN Reason: FEVER OR PAIN Last Admin: 04/28/17 00:58 Dose: 650 mg Acetaminophen (Tylenol -) 325 mg PO Q6H PRN PRN Reason: PAIN Last Admin: 04/24/17 21:21 Dose: 325 mg Amlodipine Besylate (Norvasc -) 10 mg PO DAILY [facility]S [facility] Last Admin: 04/28/17 10:48 Dose: 10 mg Heparin Sodium (Porcine) (Heparin -) 5,000 unit SQ BID [facility]S AT [facility] Last Admin: 04/28/17 10:49 Dose: 5,000 unit Sodium Chloride (1/2 Normal Saline) 1,000 mls @ 50 mls/hr IV ASDIR COUNTS [facility]CLUDE 234 BEDS AT [facility] Last Admin: 04/28/17 06:22 Dose: 50 mls/hr Prednisone (Deltasone -) 30 mg PO DAILY [facility] 234 B[facility]S AT [facility] Last Admin: 04/28/17 10:48 Dose: 30 mg Tamsulosin HCl (Flomax -) 0.4 mg PO DAILY@0830 [facility] 234 BEDS AT [facility] Last Admin: 04/28/17 08:48 Dose: 0.4 mg - Objective Vital Signs: Vital Signs Temperature 98.0 F 04/28/17 14:00 Pulse Rate 94 H 04/28/17 14:00 Respiratory Rate 20 04/28/17 14:00 Blood Pressure 130/82 04/28/17 14:00 O2 Sat by Pulse Oximetry (%) 98 04/27/17 21:00 Constitutional: Yes: Calm Eyes: Yes: Conjunctiva Clear HENT: Yes: Atraumatic Cardiovascular: Yes: S1, S2 Respiratory: Yes: CTA Bilaterally Gastrointestinal: Yes: Normal Bowel Sounds, Soft Genitourinary: Yes: WNL Musculoskeletal: Yes: Other (right knee pain) Edema: No Neurological: Yes: Oriented Psychiatric: Yes: Oriented Labs: CBC, BMP 04/24/17 11:50 04/26/17 06:05 Problem List - Problems (1) Acute kidney insufficiency Code(s): N28.9 - DISORDER OF KIDNEY AND URETER, UNSPECIFIED (2) HTN (hypertension) Code(s): I10 - ESSENTIAL (PRIMARY) HYPERTENSION (3) Kidney stone Code(s): N20.0 - CALCULUS OF KIDNEY Assessment/Plan Current Medications Generic Name Dose Route Start Last Admin Trade Name Chavze PRN Reason Stop Dose Admin Acetaminophen 650 mg 04/22/17 16:34 04/28/17 00:58 Tylenol - PO 650 mg Q6H PRN Administration FEVER OR PAIN Acetaminophen 325 mg 04/24/17 21:06 04/24/17 21:21 Tylenol - PO 325 mg Q6H PRN Administration PAIN Amlodipine Besylate 10 mg 04/23/17 10:00 04/28/17 10:48 Norvasc - PO 10 mg DAILY [facility]U Administration Heparin Sodium (Porcine) 5,000 unit 04/22/17 22:00 04/28/17 10:49 Heparin - SQ 5,000 unit BID WU Administration Sodium Chloride 1,000 mls @ 50 mls/hr 04/24/17 15:49 04/28/17 06:22 1/2 Normal Saline IV 50 mls/hr ASDIR WU Administration Prednisone 30 mg 04/27/17 21:46 04/28/17 10:48 Deltasone - PO 30 mg DAILY [facility]U Administration Tamsulosin HCl 0.4 mg 04/23/17 08:30 04/28/17 08:48 Flomax - PO 0.4 mg DAILY@0830 [facility]U Administration Laboratory Tests 04/25/17 20:30 Synovial Crystals Pending Impression 1. REE 2. nephrolithiasis 3. chronic neck pain 4. HTN with blood pressure that has been low 5. gout Plan - will order labs now - cont current meds - follow up synovial fluid to see if there are crystals - will follow PRN - please avoid NSAIDs - cont norvasc - monitor blood pressure - will follow Dr Camacho
[2017-04-28 16:21] LABS: ANION GAP 8 (8-16); CALCIUM 8.8 mg/dL (8.5-10.1); CO2 31 mmol/L (21-32); CREATININE 1.3 mg/dL (0.7-1.3); GLUCOSE,RANDOM 138 mg/dL (74-106)
[2017-05-07 13:55] LABS: CRYSTALS,SYNOVIAL FLUID POSITIVE
== END 2017-04-28 18:03 | disposition home or self-care (01) | DRG 443 ==
LOC: JER 06:34 → JERBED 11:17 → J6S 14:04
PROVIDERS: ADMIT Internal Medicine; ATTEND Internal Medicine
PROC: 0T778DZ Dilation of Left Ureter with Intraluminal Device, Via Natural or Artificial Opening Endoscopic (ICD-10-PCS; principal; 2017-04-19 15:00)
PROC: 0TW Urinary System, Revision (ICD-10-PCS; 2017-04-22)
PROC: 0S9C3ZX Drainage of Right Knee Joint, Percutaneous Approach, Diagnostic (ICD-10-PCS; 2017-04-25)
PROC: 3E0U33Z Introduction of Anti-inflammatory into Joints, Percutaneous Approach (ICD-10-PCS; 2017-04-25)
PROC: 3E0U3BZ Introduction of Anesthetic Agent into Joints, Percutaneous Approach (ICD-10-PCS; 2017-04-25)
DX: N17.9 Acute kidney failure, unspecified (principal); N13.2 Hydronephrosis with renal and ureteral calculous obstruction; I10 Essential (primary) hypertension; M54.2 Cervicalgia; G89.29 Other chronic pain; R33.9 Retention of urine, unspecified; B96.1 Klebsiella pneumoniae [K. pneumoniae] as the cause of diseases classified elsewhere; T83.122A Displacement of indwelling ureteral stent, initial encounter; Y83.8 Other surgical procedures as the cause of abnormal reaction of the patient, or of later complication, without mention of misadventure at the time of the procedure; M25.561 Pain in right knee; M10.9 Gout, unspecified; M25.461 Effusion, right knee; N39.0 Urinary tract infection, site not specified
CPT/HCPCS: 36415; 71020-TC; 73560-TC-RT; 74176; 74176-TC; 76000-TC; 76775-TC; 76856-TC; 80048; 80053; 80076; 81003; 81015; 84550; 85025; 87040; 87086; 87186; 88108; 89051; 89060; 93005; 93010; 94760; 97116-GP; 99285-25; J1644

== ENCOUNTER 2020-06-21 20:38 | Inpatient (IN) | payer OTHER ==
[2020-06-21 20:55] VITALS: BMI 28.9
--- NOTE | 2020-06-21 21:09 | PDOC ---
History of Present Illness - General Chief Complaint: Chest Pain Stated Complaint: LEFT SIDE CHEST PAIN/SOB/DIZZY Time Seen by Provider: 06/21/20 21:06 Past History - Medical History Allergies/Adverse Reactions: Allergies Allergy/AdvReac Type Severity Reaction Status Date / Time No Known Allergies Allergy Verified 01/17/20 10:30 Home Medications: Ambulatory Orders Amlodipine Besylate [Norvasc -] 10 mg PO DAILY 04/16/17 Amlodipine Besylate/Benazepril [Lotrel 10-20 mg Capsule] 1 cap PO DAILY 04/16/17 Acetaminophen [Tylenol .Regular Strength -] 325 mg PO Q6H PRN #60 tablet 04/28/17 Tamsulosin HCl [Flomax -] 0.4 mg PO DAILY@0830 #30 tab 04/28/17 predniSONE [Deltasone -] 20 mg PO DAILY #7 tablet 04/28/17 Acetaminophen 1,000 mg PO Q6H PRN #30 tablet 01/17/20 Azithromycin [Zithromax -] 250 mg PO UTDICT #6 tab 01/17/20 Anemia: No Asthma: No Cancer: No Cardiac Disorders: No CVA: No COPD: No CHF: No Dementia: No Diabetes: No GI Disorders: No Disorders: Yes HTN: Yes Hypercholesterolemia: No Liver Disease: No Seizures: No Thyroid Disease: No - Surgical History Abdominal Surgery: No Appendectomy: No Cardiac Surgery: No Cholecystectomy: No Lung Surgery: No Neurologic Surgery: Yes (cervical spine) Orthopedic Surgery: No - Immunization History Immunization Up to Date: No - Psycho-Social/Smoking History Smoking History: Never smoked Have you smoked in the past 12 months: No - Substance Abuse Hx (Audit-C & DAST Scrn) How often the patient has a drink containing alcohol: Never Score: In Men: 4 or > Positive; In Women: 3 or > Positive: 0 Screen Result (Pos requires Nsg. Audit-10AR): Negative *Physical Exam - Vital Signs Last Vital Signs Temp Pulse Resp BP Pulse Ox 99.4 F 90 20 165/80 97 06/21/20 20:42 06/21/20 20:42 06/21/20 20:42 06/21/20 20:42 06/21/20 20:42 Discharge - Follow up/Referral Referrals: Dung Yadav MD [Primary Care Provider] - - Patient Discharge Instructions - Post Discharge Activity
--- NOTE | 2020-06-21 21:14 | PDOC ---
History of Present Illness - General Chief Complaint: Chest Pain Stated Complaint: LEFT SIDE CHEST PAIN/SOB/DIZZY Time Seen by Provider: 06/21/20 21:06 - History of Present Illness Initial Comments: 06/21/20 21:11 64 y/o M hx of HTN presents to the ED with 4 days of vertigo. Pt reports episodes are intermitten throughout the day with the first episode lasting up to 5 minutes. Symptoms occur both at rest, and when walking around, but exacerbated by positional changes i.e (sitting to standing, walking). Pt has had associated chest pressure with episodes with no accompanying shortness of breath. He denies any head trauma associated with onset of event. Pt denies any nausea, vomiting, shortness of breath, loss of sensation/strength,blurry vision, unilateral weakness, previous hx of stroke. PMHx: as noted above ROS: as noted SHx: Denies Etoh, IVDA, tobacco use Allergies: NKDA ROS: GENERAL/CONSTITUTIONAL: No fever or chills. No weakness. HEAD, EYES, EARS, NOSE AND THROAT: No change in vision. No ear pain or discha rge. No sore throat. CARDIOVASCULAR: No chest pain or shortness of breath RESPIRATORY: No cough, wheezing, or hemoptysis. GASTROINTESTINAL: No nausea, vomiting, diarrhea or constipation. GENITOURINARY: No dysuria, frequency, or change in urination. MUSCULOSKELETAL: No joint or muscle swelling or pain. No neck or back pain. SKIN: No rash NEUROLOGIC: +vertigo, no loss of strength/sensation ENDOCRINE: No increased thirst. No abnormal weight change HEMATOLOGIC/LYMPHATIC: No anemia, easy bleeding, or history of blood clots. ALLERGIC/IMMUNOLOGIC: No hives or skin allergy. PE: GENERAL: Awake, alert, and fully oriented, in no acute distress HEAD: No signs of trauma, normocephalic, atraumatic EYES: PERRLA, EOMI, sclera anicteric, conjunctiva clear.no nystagmus. ENT: Auricles normal inspection,TM's omtact hearing grossly normal, nares patent, oropharynx clear without exudates. Moist mucosa NECK: Normal ROM, supple, no lymphadenopathy, JVD, or masses LUNGS: No distress, speaks full sentences, clear to auscultation bilaterally HEART: Regular rate and rhythm, normal S1 and S2, no murmurs, rubs or gallops, peripheral pulses normal and equal bilaterally. ABDOMEN: Soft, nontender, normoactive bowel sounds. No guarding, no rebound. No masses EXTREMITIES : Normal inspection, Normal range of motion, no edema. No clubbing or cyanosis NEUROLOGICAL: Cranial nerves II through XII grossly intact. +romberg test, loses balance while walking. SKIN: Warm, Dry, normal turgor, no rashes or lesions noted 06/21/20 23:26 NIH Stroke Scale - Last Known Well Date/Time & Onset Date Last Known Well: 06/17/20 - Initial Evaluation Level of consciousness: Alert Ask patient the month and their age: Answers both correctly Ask patient to open & close eyes; make fist and let go: Obeys both correctly Best gaze (horizontal eye movement): Normal Visual field testing: No visual field loss Facial paresis (Show teeth/raise eyebrows/close eyes tight): Normal symmetrical movement Motor Function: Left Arm: Normal Motor Function: Right Arm: Normal (extends arm 90 (or 45) degrees for 10 seconds without drift Motor Function: Left Leg: Normal (extends leg 30 degrees for 5 seconds without drift) Motor Function: Right Leg: Normal (extends leg 30 degrees for 5 seconds without drift) Limb Ataxia: No ataxia Sensory(Use pinprick test arms,legs,trunk,face/side to side): Normal Best language (Describe picture, name items, read sentences): No Aphasia Dysarthria (read several words): Normal articulation Extinction and Inattention: No abnormality - Total Score NIH Stroke Scale Score: 0 Past History - Medical History Allergies/Adverse Reactions: Allergies Allergy/AdvReac Type Severity Reaction Status Date / Time No Known Allergies Allergy Verified 01/17/20 10:30 Home Medications: Ambulatory Orders Amlodipine Besylate [Norvasc -] 10 mg PO DAILY 04/16/17 Amlodipine Besylate/Benazepril [Lotrel 10-20 mg Capsule] 1 cap PO DAILY 04/16/17 Acetaminophen [Tylenol .Regular Strength -] 325 mg PO Q6H PRN #60 tablet 04/28/17 Tamsulosin HCl [Flomax -] 0.4 mg PO DAILY@0830 #30 tab 04/28/17 predniSONE [Deltasone -] 20 mg PO DAILY #7 tablet 04/28/17 Acetaminophen 1,000 mg PO Q6H PRN #30 tablet 01/17/20 Azithromycin [Zithromax -] 250 mg PO UTDICT #6 tab 01/17/20 Anemia: No Asthma: No Cancer: No Cardiac Disorders: No CVA: No COPD: No CHF: No Dementia: No Diabetes: No GI Disorders: No Disorders: Yes HTN: Yes Hypercholesterolemia: No Liver Disease: No Seizures: No Thyroid Disease: No - Surgical History Abdominal Surgery: No Appendectomy: No Cardiac Surgery: No Cholecystectomy: No Lung Surgery: No Neurologic Surgery: Yes (cervical spine) Orthopedic Surgery: No - Immunization History Immunization Up to Date: No - Psycho-Social/Smoking History Smoking History: Never smoked Have you smoked in the past 12 months: No - Substance Abuse Hx (Audit-C & DAST Scrn) How often the patient has a drink containing alcohol: Never Score: In Men: 4 or > Positive; In Women: 3 or > Positive: 0 Screen Result (Pos requires Nsg. Audit-10AR): Negative *Physical Exam - Vital Signs Last Vital Signs Temp Pulse Resp BP Pulse Ox 99.4 F 90 20 165/80 97 06/21/20 20:42 06/21/20 20:42 06/21/20 20:42 06/21/20 20:42 06/21/20 20:42 ED Treatment Course - LABORATORY CBC & Chemistry Diagram: 06/21/20 22:45 06/21/20 22:45 Medical Decision Making - Medical Decision Making 06/21/20 23:34 DDx including but not limited to: tia, bppv, Workup: head ct, labs, ekg TX: fluids, meclizine Scores - HEART score - EKG: sinus rhythm with PVC's HR 84 bpm, NV 148ms, QRS 86 ms, QTc 430 ms ED course meds: Re-assessment: pt reports improvement in his vertiginous symptoms, no loss of balance n repeat gait exam. +romberg. trop negative. head CT: FINDINGS: No intra or extra-axial hemorrhage or collection. No evidence of an acute infarct in a major vascular distribution within the limitations of CT No mass lesion or midline shift. Normal long white matter differentiation. Mild cortical atrophy The ventricles are not enlarged and are symmetric and midline in position. The calvarium is intact The visualized paranasal sinuses and mastoid air cells are clear. IMPRESSION: No CT evidence of acute intracranial pathology Mild involutional changes 06/21/20 23:37 06/22/20 00:48 Discharge - Discharge Information Problems reviewed: Yes - Follow up/Referral Referrals: Dung Yadav MD [Primary Care Provider] - - Patient Discharge Instructions - Post Discharge Activity
[2020-06-21] MEDS ORDERED: SODIUM CHLORIDE 0.9% 500 ML INFUS.BAG IV ONE (21:46)
[2020-06-21] MEDS ORDERED: MECLIZINE HCL 25 MG TABLET (FP) PO ONE (21:47)
[2020-06-21] MEDS ORDERED: MECLIZINE HCL 25 MG TABLET (FP) ONE (22:04)
[2020-06-21 22:56] LABS: BASO % 0.7 % (0-2.0); EOS % 3.1 % (0-4.5); HEMATOCRIT 45.1 % (35.4-49); HEMOGLOBIN 15.3 GM/dL (11.7-16.9); MCH 29.9 pg (25.7-33.7); MCHC 33.9 g/dl (32.0-35.9); MEAN CELL VOLUME 88.2 fl (80-96); MEAN PLT VOLUME 9.4 fl (7.5-11.1); MONO % 4.6 % (3.8-10.2); NEUT % 56.6 % (42.8-82.8); PLATELET COUNT 169 K/MM3 (134-434); RBC 5.12 M/mm3 (4.00-5.60); RDW 13.6 % (11.9-15.9); WHITE BLOOD COUNT 7.1 K/mm3 (4.0-10.0)
--- NOTE | 2020-06-21 23:22 | PDOC ---
Documentation entered by Martine Alegre SCRIBE, acting as scribe for Calista Cazares MD. Calista Cazares MD: This documentation has been prepared by the Sis dumas [place], SCRIBE, under my direction and personally reviewed by me in its entirety. I confirm that the documentation accurately reflects all work, treatment, procedures, and medical decision making performed by me. Attending Attestation - Resident Resident Name: Sachin Melendrez - ED Attending Attestation I have performed the following: I have examined & evaluated the patient, The case was reviewed & discussed with the resident, I agree w/resident's findings & plan, Exceptions are as noted - HPI HPI: 06/21/20 22:14 Patient is a 64 year old male with a significant past medical history of HTN who presents to the ED with four days of persistent unsteady gait. As per patient, he reports an episode of dizziness and rooming spinning 4 days ago, which has since resolved, but endorses continuing symptoms of unsteadiness and intermittent chest pressure. Patient states he has never experienced similar symptoms in the past. He presented today due to persitence of the sxs. No treatments tried. No sick contacts Denies fever, chills, shortness of breath, nausea, vomiting. Denies any vision changes. Denies SOB, recent travel, immobility. Allergies: NKDA PCP: Dr. Dung Yadav - Physicial Exam PE: 06/21/20 23:17 Agree with resident exam - Medical Decision Making 06/21/20 22:18 64yo M hx HTN presents to the ED with gait instability preceded by an episode of room spinning dizziness Exam with leaning to the right side when ambulating Concern for CVA vs peripheral vertigo Plan for labs, IVF, meclizine, CTH, likely admit for MRI to r/o CVA 06/21/20 23:37 labs normal thus far Pt feels slightly better with meclizine, but still unsteady when standing CTH pending Anticipate admission for CVA w/u Discharge - Discharge Information Problems reviewed: Yes Clinical Impression/Diagnosis: Dizziness, Unsteady gait, Chest pressure - Follow up/Referral - Patient Discharge Instructions - Post Discharge Activity
[2020-06-21 23:24] LABS: ALK PHOS 101 U/L (45-117); ANION GAP 10 MMOL/L (8-16); BILIRUBIN,TOTAL 0.4 mg/dL (0.2-1); BLOOD UREA NITROGEN 21.2 mg/dL (7-18); CALCIUM 9.3 mg/dL (8.5-10.1); CHLORIDE 104 mmol/L (98-107); CO2 28 mmol/L (21-32); CREATININE 1.6 mg/dL (0.55-1.3); GLUCOSE,RANDOM 107 mg/dL (74-106); MAGNESIUM 2.4 mg/dL (1.8-2.4); SGOT/AST 20 U/L (15-37); SGPT/ALT 29 U/L (13-61); SODIUM 142 mmol/L (136-145); TOT PROT 8.6 g/dl (6.4-8.2)
[2020-06-21 23:39] LABS: INR 0.98 (0.83-1.09); PROTHROMBIN TIME (PATIENT) 11.6 SEC (9.7-13.0)
[2020-06-21 23:42] LABS: ACTIVATED PTT 29.1 SECONDS (25.2-36.5)
[2020-06-22] MEDS ORDERED: methylPREDNISolone NA SUCC 40 MG/1 ML VIAL ONE (09:13)
[2020-06-22] MEDS ORDERED: AZITHROMYCIN IVPB 500 MG/250 ML BAG IVPB ONE (09:13)
[2020-06-22] MEDS ORDERED: ASPIRIN COATED 81 MG TABLET.EC ONE (10:05)
[2020-06-22] MEDS: ASPIRIN COATED 81 MG TABLET.EC PO SCH (10:10)
[2020-06-22] MEDS: amLODIPine BESYLATE 10 MG TABLET (FP) PO SCH (10:11)
--- NOTE | 2020-06-22 11:32 | CONSULT ---
Consult - text type - Consultation Consultation Note: Neurology - General Chief Complaint: Chest Pain Stated Complaint: LEFT SIDE CHEST PAIN/SOB/DIZZY Time Seen by Provider: 06/21/20 21:06 - History of Present Illness 64 y/o M hx of HTN presents to the ED with 4 days of vertigo. Pt reports episodes of vertigo are intermittent throughout the day with the first episode lasting up to 5 minutes. Symptoms occur both at rest, and when walking around, but exacerbated by positional changes i.e (sitting to standing, walking). Pt has had associated chest pressure with episodes with no accompanying shortness of breath. He denies any head trauma associated with onset of event. Pt denies any nausea, vomiting, shortness of breath, loss of sensation/strength,blurry vision, unilateral weakness, previous hx of stroke. Carotid Doppler completed with no evidence of significant stenosis. Head CT completed with no evidence of acute infarct. Brain MRI ordered, but not likely to be completed due to penile pump. Patient reports neurologically being at baseline, able to ambulate and essentially asymptomatic. Patient interested in discharge, from neuro prespective, no objection at this time. Can d/c MRI. Info provided for outpatient follow up. Medical History: as noted above Social History: Denies Etoh, IVDA, tobacco use Family History: HTN Allergies Allergy/AdvReac Type Severity Reaction Status Date / Time No Known Allergies Allergy Verified 01/17/20 10:30 Ambulatory Orders Amlodipine Besylate [Norvasc -] 10 mg PO DAILY 04/16/17 Amlodipine Besylate/Benazepril [Lotrel 10-20 mg Capsule] 1 cap PO DAILY 04/16/17 Acetaminophen [Tylenol .Regular Strength -] 325 mg PO Q6H PRN #60 tablet 04/28/17 Tamsulosin HCl [Flomax -] 0.4 mg PO DAILY@0830 #30 tab 04/28/17 predniSONE [Deltasone -] 20 mg PO DAILY #7 tablet 04/28/17 Acetaminophen 1,000 mg PO Q6H PRN #30 tablet 01/17/20 Azithromycin [Zithromax -] 250 mg PO UTDICT #6 tab 01/17/20 Active Medications Amlodipine Besylate (Norvasc -) 10 mg PO DAILY [facility] Last Admin: 06/22/20 10:11 Dose: 10 mg Documented by: Aspirin (Ecotrin -) 81 mg PO DAILY [facility] Last Admin: 06/22/20 10:10 Dose: 81 mg Documented by: Tamsulosin HCl (Flomax -) 0.4 mg PO DAILY@0830 [facility] Review of Systems: GENERAL/CONSTITUTIONAL: No fever or chills. No weakness. HEAD, EYES, EARS, NOSE AND THROAT: No change in vision. No ear pain or discharge . No sore throat. CARDIOVASCULAR: No chest pain or shortness of breath RESPIRATORY: No cough, wheezing, or hemoptysis. GASTROINTESTINAL: No nausea, vomiting, diarrhea or constipation. GENITOURINARY: No dysuria, frequency, or change in urination. MUSCULOSKELETAL: No joint or muscle swelling or pain. No neck or back pain. SKIN: No rash NEUROLOGIC: +vertigo, no loss of strength/sensation ENDOCRINE: No increased thirst. No abnormal weight change HEMATOLOGIC/LYMPHATIC: No anemia, easy bleeding, or history of blood clots. ALLERGIC/IMMUNOLOGIC: No hives or skin allergy. PHYSICAL EXAMINATIONS: Vital Signs Period Temp Pulse Resp BP Sys/Daniel Pulse Ox Last 24 Hr 98.1 F-99.4 F 61-90 16-20 107-165/58-80 95-100 GENERAL: Awake, alert, and fully oriented, in no acute distress HEAD: No signs of trauma, normocephalic, atraumatic EYES: PERRLA, EOMI, sclera anicteric, conjunctiva clear.no nystagmus. ENT: Auricles normal inspection,TM's omtact hearing grossly normal, nares patent, oropharynx clear without exudates. Moist mucosa NECK: Normal ROM, supple, no lymphadenopathy, JVD, or masses LUNGS: No distress, speaks full sentences, clear to auscultation bilaterally HEART: Regular rate and rhythm, normal S1 and S2, no murmurs, rubs or gallops, peripheral pulses normal and equal bilaterally. ABDOMEN: Soft, nontender, normoactive bowel sounds. No guarding, no rebound. No masses EXTREMITIES : Normal inspection, Normal range of motion, no edema. No clubbing or cyanosis NEUROLOGICAL: Cranial nerves II through XII grossly intact. +romberg test, loses balance while walking. SKIN: Warm, Dry, normal turgor, no rashes or lesions noted CBCD WBC 7.1 K/mm3 (4.0-10.0) 06/21/20 22:45 RBC 5.12 M/mm3 (4.00-5.60) 06/21/20 22:45 Hgb 15.3 GM/dL (11.7-16.9) 06/21/20 22:45 Hct 45.1 % (35.4-49) D 06/21/20 22:45 MCV 88.2 fl (80-96) 06/21/20 22:45 MCHC 33.9 g/dl (32.0-35.9) 06/21/20 22:45 RDW 13.6 % (11.9-15.9) 06/21/20 22:45 Plt Count 169 K/MM3 (134-434) 06/21/20 22:45 MPV 9.4 fl (7.5-11.1) 06/21/20 22:45 CMP Sodium 142 mmol/L (136-145) 06/21/20 22:45 Potassium 4.0 mmol/L (3.5-5.1) 06/21/20 22:45 Chloride 104 mmol/L (98-107) 06/21/20 22:45 Carbon Dioxide 28 mmol/L (21-32) 06/21/20 22:45 Anion Gap 10 MMOL/L (8-16) 06/21/20 22:45 BUN 21.2 mg/dL (7-18) H 06/21/20 22:45 Creatinine 1.6 mg/dL (0.55-1.3) H 06/21/20 22:45 Random Glucose 107 mg/dL (74-106) H 06/21/20 22:45 Calcium 9.3 mg/dL (8.5-10.1) 06/21/20 22:45 Total Bilirubin 0.4 mg/dL (0.2-1) 06/21/20 22:45 AST 20 U/L (15-37) 06/21/20 22:45 ALT 29 U/L (13-61) 06/21/20 22:45 Alkaline Phosphatase 101 U/L (45-117) 06/21/20 22:45 Total Protein 8.6 g/dl (6.4-8.2) H 06/21/20 22:45 Albumin 4.0 g/dl (3.4-5.0) 08/29/20 22:45 CARDIAC ENZYMES Creatine Kinase 94 U/L (26-308) 06/21/20 22:45 Troponin I < 0.02 ng/ml (0.00-0.05) 06/21/20 22:45 PLAN/ASSESSMENT 64 y/o M hx of HTN presents to the ED with 4 days of vertigo. Pt reports episodes of vertigo are intermittent throughout the day with the first episode lasting up to 5 minutes. Symptoms occur both at rest, and when walking around, but exacerbated by positional changes i.e (sitting to standing, walking). Pt has had associated chest pressure with episodes with no accompanying shortness of breath. He denies any head trauma associated with onset of event. Pt denies any nausea, vomiting, shortness of breath, loss of sensation/strength,blurry vision, unilateral weakness, previous hx of stroke. Carotid Doppler completed with no evidence of significant stenosis. Head CT completed with no evidence of acute infarct. Brain MRI ordered, but not likely to be completed due to penile pump. Patient reports neurologically being at baseline, able to ambulate and essentially asymptomatic. Patient interested in discharge, from neuro prespective, no objection at this time. Can d/c MRI. Info provided for outpatient follow up. Maintain adequate hydration. Avoid sudden head movements. Meclezine PRN can be given. Continue blood pressure control, maintain normotensive range.
--- NOTE | 2020-06-22 11:59 | EKG ---
Test Reason : Blood Pressure : / mmHG Vent. Rate : 084 BPM Atrial Rate : 084 BPM P-R Int : 148 ms QRS Dur : 086 ms QT Int : 364 ms P-R-T Axes : 043 -13 053 degrees QTc Int : 430 ms SINUS RHYTHM WITH VENTRICULAR FUSION Confirmed by ENRICO ALEMAN MD ([id number]) on 06/22/2020 11:58:49 AM Referred By: Confirmed By:ENRICO ALEMAN MD
--- NOTE | 2020-06-22 22:25 | HP ---
Admitting History and Physical - Admission History of Present Illness: 64 y/o M hx of HTN presents to the ED with 4 days of vertigo. Pt reports episodes of vertigo are intermittent throughout the day with the first episode lasting up to 5 minutes. Symptoms occur both at rest, and when walking around, but exacerbated by positional changes i.e (sitting to standing, walking). Pt has had associated chest pressure with episodes with no accompanying shortness of breath. He denies any head trauma associated with onset of event. Pt denies any nausea, vomiting, shortness of breath, loss of sensation/strength,blurry vision, unilateral weakness, previous hx of stroke. Head CT completed with no evidence of acute infarct. - Past Medical History Cardiovascular: Yes: HTN Renal/: Yes: Other (uretral stent) Musculoskeletal: Yes: Other (Chronic neck pain) - Smoking History Smoking history: Never smoked Have you smoked in the past 12 months: No - Alcohol/Substance Use Hx Alcohol Use: Yes Home Medications - Allergies Allergies/Adverse Reactions: Allergies Allergy/AdvReac Type Severity Reaction Status Date / Time No Known Allergies Allergy Verified 01/17/20 10:30 - Home Medications Home Medications: Ambulatory Orders Amlodipine Besylate [Norvasc -] 10 mg PO DAILY 04/16/17 Amlodipine Besylate/Benazepril [Lotrel 10-20 mg Capsule] 1 cap PO DAILY 04/16/17 Acetaminophen [Tylenol .Regular Strength -] 325 mg PO Q6H PRN #60 tablet 04/28/17 Tamsulosin HCl [Flomax -] 0.4 mg PO DAILY@0830 #30 tab 04/28/17 predniSONE [Deltasone -] 20 mg PO DAILY #7 tablet 04/28/17 Acetaminophen 1,000 mg PO Q6H PRN #30 tablet 01/17/20 Azithromycin [Zithromax -] 250 mg PO UTDICT #6 tab 01/17/20 Family Medical History Family History: Unremarkable Review of Systems - Review of Systems Constitutional: reports: Other (Vertigo) Neck: reports: No Symptoms Cardiovascular: reports: Chest Pain Respiratory: reports: No Symptoms Gastrointestinal: reports: No Symptoms Genitourinary: reports: No Symptoms Physical Examination Vital Signs: Vital Signs Temperature 98.1 F 06/22/20 17:11 Pulse Rate 76 06/22/20 17:11 Respiratory Rate 20 06/22/20 17:11 Blood Pressure 140/74 06/22/20 17:11 O2 Sat by Pulse Oximetry (%) 96 06/22/20 17:11 Constitutional: Yes: Well Nourished Eyes: Yes: WNL HENT: Yes: WNL, Atraumatic Neck: Yes: WNL, Supple Cardiovascular: Yes: WNL, Regular Rate and Rhythm Respiratory: Yes: WNL, Regular, CTA Bilaterally Gastrointestinal: Yes: WNL, Normal Bowel Sounds, Soft Extremities: Yes: WNL Edema: No Neurological: Yes: WNL, Alert, Oriented ...Motor Strength: WNL Labs: CBC, BMP 06/21/20 22:45 06/21/20 22:45 Problem List - Problems (1) Chest pain Assessment/Plan: Await echo Serial cpk/troponin Cardio consult Code(s): R07.9 - CHEST PAIN, UNSPECIFIED (2) Vertigo Assessment/Plan: Ct scan head was negative MRI unable to be done due to penile implant Neuro consult noted Code(s): R42 - DIZZINESS AND GIDDINESS (3) HTN (hypertension) Assessment/Plan: Bp stable Cont norvasc Code(s): I10 - ESSENTIAL (PRIMARY) HYPERTENSION (4) BPH (benign prostatic hyperplasia) Assessment/Plan: Cont flomax Code(s): N40.0 - BENIGN PROSTATIC HYPERPLASIA WITHOUT LOWER URINRY TRACT SYMP
[2020-06-23 07:41] LABS: BASO % 0.5 % (0-2.0); EOS % 4.2 % (0-4.5); HEMATOCRIT 42.8 % (35.4-49); HEMOGLOBIN 14.5 GM/dL (11.7-16.9); LYMPH % 32.1 % (8-40); MCH 29.8 pg (25.7-33.7); MCHC 33.9 g/dl (32.0-35.9); MEAN CELL VOLUME 87.8 fl (80-96); MEAN PLT VOLUME 9.2 fl (7.5-11.1); MONO % 4.9 % (3.8-10.2); NEUT % 58.3 % (42.8-82.8); PLATELET COUNT 148 K/MM3 (134-434); RBC 4.87 M/mm3 (4.00-5.60); RDW 13.7 % (11.9-15.9); WHITE BLOOD COUNT 6.4 K/mm3 (4.0-10.0)
[2020-06-23 08:12] LABS: ALBUMIN 3.6 g/dl (3.4-5.0); ALK PHOS 89 U/L (45-117); ANION GAP 5 MMOL/L (8-16); BILIRUBIN,TOTAL 0.6 mg/dL (0.2-1); BLOOD UREA NITROGEN 22.6 mg/dL (7-18); CALCIUM 8.7 mg/dL (8.5-10.1); CHLORIDE 109 mmol/L (98-107); CO2 27 mmol/L (21-32); CREATININE 1.3 mg/dL (0.55-1.3); GLUCOSE,RANDOM 88 mg/dL (74-106); POTASSIUM 4.1 mmol/L (3.5-5.1); SGOT/AST 13 U/L (15-37); SGPT/ALT 26 U/L (13-61); SODIUM 141 mmol/L (136-145); TOT PROT 7.9 g/dl (6.4-8.2)
[2020-06-23] MEDS ORDERED: TAMSULOSIN HCL 0.4 MG CAP PO SCH (08:30)
--- NOTE | 2020-06-23 08:34 | PN ---
Progress Note (short form) - Note Progress Note: Neurology - General Chief Complaint: Chest Pain Stated Complaint: LEFT SIDE CHEST PAIN/SOB/DIZZY Time Seen by Provider: 06/21/20 21:06 - History of Present Illness 64 y/o M hx of HTN presents to the ED with 4 days of vertigo. Pt reports episodes of vertigo are intermittent throughout the day with the first episode lasting up to 5 minutes. Symptoms occur both at rest, and when walking around, but exacerbated by positional changes i.e (sitting to standing, walking). Pt has had associated chest pressure with episodes with no accompanying shortness of breath. He denies any head trauma associated with onset of event. Pt denies any nausea, vomiting, shortness of breath, loss of sensation/strength,blurry vision, unilateral weakness, previous hx of stroke. Carotid Doppler completed with no evidence of significant stenosis. Head CT completed with no evidence of acute infarct. Brain MRI ordered, but not likely to be completed due to penile pump. Patient reports neurologically being at baseline, able to ambulate and essentially asymptomatic. MRI unable to be completed. Info provided for outpatient follow up. Active Medications Amlodipine Besylate (Norvasc -) 10 mg PO DAILY [facility] Last Admin: 06/22/20 10:11 Dose: 10 mg Documented by: Aspirin (Ecotrin -) 81 mg PO DAILY [facility] Last Admin: 06/22/20 10:10 Dose: 81 mg Documented by: Tamsulosin HCl (Flomax -) 0.4 mg PO DAILY@0830 [facility] PHYSICAL EXAMINATIONS: Vital Signs Period Temp Pulse Resp BP Sys/Daniel Pulse Ox Last 24 Hr 98.1 F-98.8 F 72-82 17-20 119-140/65-74 96-100 GENERAL: Awake, alert, and fully oriented, in no acute distress HEAD: No signs of trauma, normocephalic, atraumatic EYES: PERRLA, EOMI, sclera anicteric, conjunctiva clear.no nystagmus. ENT: Auricles normal inspection,TM's omtact hearing grossly normal, nares patent, oropharynx clear without exudates. Moist mucosa NECK: Normal ROM, supple, no lymphadenopathy, JVD, or masses LUNGS: No distress, speaks full sentences, clear to auscultation bilaterally HEART: Regular rate and rhythm, normal S1 and S2, no murmurs, rubs or gallops, peripheral pulses normal and equal bilaterally. ABDOMEN: Soft, nontender, normoactive bowel sounds. No guarding, no rebound. No masses EXTREMITIES : Normal inspection, Normal range of motion, no edema. No clubbing or cyanosis NEUROLOGICAL: Cranial nerves II through XII grossly intact. +romberg test, loses balance while walking. SKIN: Warm, Dry, normal turgor, no rashes or lesions noted CBCD WBC 6.4 K/mm3 (4.0-10.0) 06/23/20 06:08 RBC 4.87 M/mm3 (4.00-5.60) 06/23/20 06:08 Hgb 14.5 GM/dL (11.7-16.9) 06/23/20 06:08 Hct 42.8 % (35.4-49) 06/23/20 06:08 MCV 87.8 fl (80-96) 06/23/20 06:08 MCHC 33.9 g/dl (32.0-35.9) 06/23/20 06:08 RDW 13.7 % (11.9-15.9) 06/23/20 06:08 Plt Count 148 K/MM3 (134-434) 06/23/20 06:08 MPV 9.2 fl (7.5-11.1) 06/23/20 06:08 CMP Sodium 141 mmol/L (136-145) 06/23/20 06:08 Potassium 4.1 mmol/L (3.5-5.1) 06/23/20 06:08 Chloride 109 mmol/L (98-107) H 06/23/20 06:08 Carbon Dioxide 27 mmol/L (21-32) 06/23/20 06:08 Anion Gap 5 MMOL/L (8-16) L 06/23/20 06:08 BUN 22.6 mg/dL (7-18) H 06/23/20 06:08 Creatinine 1.3 mg/dL (0.55-1.3) 06/23/20 06:08 Random Glucose 88 mg/dL (74-106) 06/23/20 06:08 Calcium 8.7 mg/dL (8.5-10.1) 06/23/20 06:08 Total Bilirubin 0.6 mg/dL (0.2-1) 06/23/20 06:08 AST 13 U/L (15-37) L 06/23/20 06:08 ALT 26 U/L (13-61) 06/23/20 06:08 Alkaline Phosphatase 89 U/L (45-117) 06/23/20 06:08 Total Protein 7.9 g/dl (6.4-8.2) 06/23/20 06:08 Albumin 3.6 g/dl (3.4-5.0) 06/23/20 06:08 CARDIAC ENZYMES Creatine Kinase 72 U/L (26-308) 06/23/20 06:08 Troponin I < 0.02 ng/ml (0.00-0.05) 06/23/20 06:08 PLAN/ASSESSMENT 64 y/o M hx of HTN presents to the ED with 4 days of vertigo. Pt reports episodes of vertigo are intermittent throughout the day with the first episode lasting up to 5 minutes. Symptoms occur both at rest, and when walking around, but exacerbated by positional changes i.e (sitting to standing, walking). Pt has had associated chest pressure with episodes with no accompanying shortness of breath. He denies any head trauma associated with onset of event. Pt denies any nausea, vomiting, shortness of breath, loss of sensation/strength,blurry vision, unilateral weakness, previous hx of stroke. Carotid Doppler completed with no evidence of significant stenosis. Head CT completed with no evidence of acute infarct. Brain MRI ordered, but not likely to be completed due to penile pump. Patient reports neurologically being at baseline, able to ambulate and essentially asymptomatic. Patient interested in discharge, from neuro prespective, no objection at this time. Can d/c MRI. Info provided for outpatient follow up. Maintain adequate hydration. Avoid sudden head movements. Meclezine PRN can be given. Continue blood pressure control, maintain normotensive range. On amlodipine. Outpatient follow up.
[2020-06-23] MEDS: ASPIRIN COATED 81 MG TABLET.EC PO SCH (10:05)
[2020-06-23] MEDS: amLODIPine BESYLATE 10 MG TABLET (FP) PO SCH (10:05)
--- NOTE | 2020-06-23 12:40 | CON.CARD ---
Consult Consult Specialty:: Cardiolopgy - History of Present Illness History of Present Illness: 64 y/o M hx of HTN presents to the ED with 4 days of vertigo. Pt reports episodes of vertigo are intermittent throughout the day with the first episode lasting up to 5 minutes. Symptoms occur both at rest, and when walking around, but exacerbated by positional changes i.e (sitting to standing, walking). Pt has had associated chest pressure with episodes with no accompanying shortness of breath. He denies any head trauma associated with onset of event. Pt denies any nausea, vomiting, shortness of breath, loss of sensation/strength,blurry vision, unilateral weakness, previous hx of stroke. Head CT completed with no evidence of acute infarct. - History Source History Provided By: Patient, Medical Record - Past Medical History Cardio/Vascular: Yes: HTN Renal/: Yes: Other (uretral stent) Musculoskeletal: Yes: Other (Chronic neck pain) - Alcohol/Substance Use Hx Alcohol Use: Yes - Smoking History Smoking history: Never smoked Have you smoked in the past 12 months: No Home Medications - Allergies Allergies/Adverse Reactions: Allergies Allergy/AdvReac Type Severity Reaction Status Date / Time No Known Allergies Allergy Verified 01/17/20 10:30 - Home Medications Home Medications: Ambulatory Orders Amlodipine Besylate/Benazepril [Lotrel 10-20 mg Capsule] 1 cap PO DAILY 04/16/17 Acetaminophen [Tylenol .Regular Strength -] 325 mg PO Q6H PRN #60 tablet 04/28/17 Tamsulosin HCl [Flomax -] 0.4 mg PO DAILY@0830 #30 tab 04/28/17 Aspirin Coated [Ecotrin -] 81 mg PO DAILY #30 tab 06/23/20 Family Medical History Family History: Unremarkable Review of Systems - Review of Systems Constitutional: reports: No Symptoms Eyes: reports: No Symptoms HENT: reports: No Symptoms Neck: reports: No Symptoms Cardiovascular: reports: No Symptoms Respiratory: reports: No Symptoms Gastrointestinal: reports: No Symptoms Genitourinary: reports: No Symptoms Breasts: reports: No Symptoms Reported Musculoskeletal: reports: No Symptoms Integumentary: reports: No Symptoms Neurological: reports: Other (vertigo) Endocrine: reports: No Symptoms Hematology/Lymphatic: reports: No Symptoms Psychiatric: reports: No Symptoms Vital Signs: Vital Signs Temperature 98.4 F 08/31/20 10:01 Pulse Rate 80 06/23/20 10:01 Respiratory Rate 18 06/23/20 10:01 Blood Pressure 132/81 06/23/20 10:01 O2 Sat by Pulse Oximetry (%) 98 06/23/20 10:01 Constitutional: Yes: Well Nourished, No Distress, Calm Eyes: Yes: WNL, Conjunctiva Clear, EOM Intact HENT: Yes: WNL, Atraumatic, Normocephalic Neck: Yes: WNL, Supple, Trachea Midline Respiratory: Yes: WNL, Regular, CTA Bilaterally Gastrointestinal: Yes: WNL, Normal Bowel Sounds Renal/: Yes: WNL Cardiovascular: Yes: WNL, Regular Rate and Rhythm Musculoskeletal: Yes: WNL Extremities: Yes: WNL Integumentary: Yes: WNL Neurological: Yes: WNL, Alert, Oriented ...Motor Strength: WNL Psychiatric: Yes: WNL, Alert, Oriented - Other Data Labs, Other Data: CBC, BMP 06/23/20 06:08 06/23/20 06:08 INR, PTT INR 0.98 (0.83-1.09) 06/21/20 22:45 Troponin, BNP 06/22/20 06/23/20 12:58 06:08 Troponin I < 0.02 < 0.02 Troponin, BNP 06/22/20 06/23/20 12:58 06:08 Troponin I < 0.02 < 0.02 Imaging - Results Chest X-ray: Image Reviewed (no i/e) EKG: Image Reviewed (sr isolated fussion complecx) Assessment/Plan Vertigo HTN denies CP Denies h/o HLP or ASHD ECHO /telemetry/c.duplex / cardiac enzymes/EKG essentially normal Neurologic evaluation appreciated. Plan; From cardiac point may be followed as outpatient, Keep LDL below 100 mg/dl Needs for ASA 81 qd for primary to be d/w as outpatient
[2020-06-23 14:53] VITALS: BP 146/75; PULSE 103; TEMP 97.6
--- NOTE | 2020-06-23 15:51 | ECHO ---
Name: BUNDYWEST Exam:Adult Echocardiogram Study Date: 06/23/2020 08:39 AM Age: 64 yrs Reason For Study: CVA Height: 69 in Weight: 196 lb BSA: 2.0 m2 MMode/2D Measurements & Calculations IVSd: 1.1 cm Ao root diam: 3.8 cm LVIDd: 3.8 cm LA dimension: 3.0 cm LVIDs: 2.2 cm LVPWd: 1.00 cm EDV(Teich): 60.5 ml LVOT diam: 2.0 cm ESV(Teich): 16.2 ml LAV (MOD-bp): 37.2 ml Doppler Measurements & Calculations MV E max abad: 64.9 cm/sec Ao V2 max: 161.9 cm/sec MV A max abad: 102.2 cm/sec Ao max P.5 mmHg MV E/A: 0.64 AI P1/2t: 545.3 msec MV dec time: 0.17 sec JUSTO(V,D): 2.0 cm2 AI max abad: 332.1 cm/sec LV V1 max P.9 mmHg AI max P.5 mmHg LV V1 max: 99.2 cm/sec AI dec slope: 178.4 cm/sec2 TR max abad: 254.9 cm/sec PA V2 max: 111.6 cm/sec TR max P.0 mmHg PA max P.0 mmHg Med Peak E' Abad: 7.2 cm/sec PI Vmax: 99.5 cm/sec Med E/e': 9.0 Lat Peak E' Abad: 10.8 cm/sec Lat E/e': 6.0 Procedure A complete two-dimensional transthoracic echocardiogram was performed (2D, M-mode, Doppler and color flow Doppler). Left Ventricle The left ventricle is normal in size. Left ventricular systolic function is normal. Ejection Fraction = 60- 65%. No regional wall motion abnormalities noted. Right Ventricle The right ventricle is normal size. The right ventricular systolic function is normal. Atria The left atrial size is normal. Right atrial size is normal. Mitral Valve The mitral valve is normal in structure and function. There is no mitral regurgitation noted. Tricuspid Valve The tricuspid valve is normal in structure and function. There is trace tricuspid regurgitation. PASP is at least 29 mmHg if RA pressure is assumed 3 mmHg. Aortic Valve There is mild aortic sclerosis.;. Mild aortic regurgitation. Pulmonic Valve The pulmonic valve is not well visualized. Great Vessels The aortic root is normal size. Pericardium/Pleura There is no pericardial effusion. Interpretation Summary The left ventricle is normal in size. Left ventricular systolic function is normal. No regional wall motion abnormalities noted. Ejection Fraction = 60-65%. There is trace tricuspid regurgitation. PASP is at least 29 mmHg if RA pressure is assumed 3 mmHg There is mild aortic sclerosis. Mild aortic regurgitation. There is no pericardial effusion. Oz Veras MD 06/23/2020 03:50 PM
== END 2020-06-23 17:10 | disposition home or self-care (01) | DRG 149 ==
LOC: JER 20:38 → JERBED 06-22 01:04 → J4W 06-22 15:30 → UNDODISIN 06-23 16:11
PROVIDERS: ADMIT Internal Medicine; ATTEND Internal Medicine
DX: R42 Dizziness and giddiness (principal); I10 Essential (primary) hypertension; N40.0 Benign prostatic hyperplasia without lower urinary tract symptoms; R07.9 Chest pain, unspecified
CPT/HCPCS: 36415; 70450-TC; 71046-TC-FY; 80053; 82550; 83735; 84484; 85025; 85610; 85730; 93005; 93010; 93306-TC; 93880-TC; 99285-25; U0003